=== PATIENT | female | born 1960 | race Caucasian/White ===

== ENCOUNTER 2017-04-20 09:02 | Inpatient (IN) ==
--- OUTSIDE RECORDS SUMMARY | 2017-04-20 09:12 | External Medical Summary ---
:1960 Author Organization [employer] Care Team Providers Name Role Phone MayTameka Provider Role Unavailable Allergies No Known Allergies Problems Problem Type Condition Code Onset Dates Condition Status Problem Spotted fevers 082.0 Active Problem Heart valve replaced by transplant V42.2 Active Problem Encounter for long-term (current) V58.61 Active use of anticoagulants Problem Nondependent alcohol abuse, 305.00 Active unspecified drunkenness Problem Other chronic pain 338.29 Active Problem Tobacco use disorder 305.1 Active Problem OA knee 715.96 Active Problem Asthma, unspecified, unspecified 493.90 Active status Problem Major depressive disorder, recurrent 296.32 Active episode, moderate Problem Generalized anxiety disorder 300.02 Active Problem Other diseases of lung, not 518.89 Active elsewhere classified Problem Encounter for long-term (current) V58.69 Active use of other medications Assessment Anxiety disorder, unspecified F41.9 Active Problem Peptic ulcer, unspecified site, 533.90 Active unspecified as acute or chronic, without mention of hemorrhage, perforation, or obstruction Problem Sialoadenitis 527.2 Active Problem Hepatitis C carrier V02.62 Active Medications Medication Code Code Instructions Start End Date Status Dosage System Date ibuprofen NDC 0 Oral 1 [place] [address]-77 108 (90 Base) 2 puffs as 51-85 MCG/ACT needed Inhalation every 4 hrs Albuterol Sulfate NDC 02701-95 (2.5 MG/3ML) 3 ml 90-52 0.083% Inhalation Three times a day Morphine Sulfate NDC 20367-95 30 MG Orally Feb 08, Apr 08, 1 tablet ER 58-01 every 12 hrs 2014 2015 Acetaminophen NDC 49571-87 500 MG Orally 2 capsule 25-08 every 4 hrs as needed Results No Known Results Summary Purpose [employer] Submission
--- OUTSIDE RECORDS SUMMARY | 2017-04-20 09:12 | External Medical Summary ---
:1960 Author Organization [employer] Care Team Providers Name Role Phone Yair Galvez Provider Role Unavailable Allergies No Known Allergies Problems Problem Type Condition Code Onset Dates Condition Status Problem Hepatitis C carrier V02.62 Active Problem Heart valve replaced by transplant V42.2 Active Problem Spotted fevers 082.0 Active Problem Nondependent alcohol abuse, 305.00 Active unspecified drunkenness Problem Other chronic pain 338.29 Active Problem Tobacco use disorder 305.1 Active Problem OA knee 715.96 Active Problem Asthma, unspecified, unspecified 493.90 Active status Problem Major depressive disorder, recurrent 296.32 Active episode, moderate Problem Generalized anxiety disorder 300.02 Active Problem Sialoadenitis 527.2 Active Problem Other diseases of lung, not 518.89 Active elsewhere classified Problem Encounter for long-term (current) V58.69 Active use of other medications Problem Peptic ulcer, unspecified site, 533.90 Active unspecified as acute or chronic, without mention of hemorrhage, perforation, or obstruction Medications No Known Medications Results No Known Results Summary Purpose [employer] Submission
--- NOTE | 2017-04-20 09:14 | Emergency Department Report ---
General Adult HPI - General Stated complaint: coa Time Seen by Provider: 04/20/17 09:05 Source: patient Mode of arrival: wheelchair Limitations: no limitations - History of Present Illness HPI narrative: 56-year-old female presents to the emergency department with a chief complaint of dyspnea and palpitations. She has been out of her rate control Cardizem for the past several days and has not bothered to refill her prescription. She notified her primary care physician and was advised to come to the emergency department 3 days ago for evaluation of her symptoms and declined. She was at home when her symptoms began over one week ago. Symptoms have been persistent in nature since onset. She notes feeling like she is bloated and retaining fluid but denies true pain or discomfort. She has a known history of atrial fibrillation/flutter. She has been compliant with her Xarelto. She has no other complaints or associated symptoms currently. She has known congestive heart failure and feels like this is a typical exacerbation of this for her. - Related Data Home Medications Medication Instructions Recorded Confirmed Acetaminophen [Acetaminophen Extra 1,000 mg PO Q6H PRN 03/09/17 04/20/17 Strength] Albuterol Sulfate 2.5 mg AEROSOL Q4H PRN 03/09/17 04/20/17 Rivaroxaban [Xarelto] 20 mg PO 1700 03/09/17 04/20/17 Trazodone [Desyrel] 100 mg PO HS PRN 03/09/17 04/20/17 dilTIAZem HCl [Cartia Xt] 120 mg PO DAILY 04/20/17 04/20/17 Allergies Allergy/AdvReac Type Severity Reaction Status Date / Time meloxicam Allergy Severe THROAT Verified 04/20/17 09:43 SWELLING meperidine Allergy Severe Anaphylactic Verified 04/20/17 09:43 Shock bee venom protein (honey bee) Allergy Intermediate Vomiting Verified 04/20/17 09 :45 codeine Allergy Intermediate Hives Verified 04/20/17 09:43 methadone Allergy Intermediate WELTS Verified 04/20/17 09:43 adhesive AdvReac Mild Verified 04/20/17 09:45 Review of Systems Constitutional: Denies: fever, chills Eyes: Denies: eye pain, vision change ENT: Denies: ear pain, throat pain Cardiovascular: Reports: palpitations. Denies: chest pain Respiratory: Reports: dyspnea. Denies: cough, wheezes, hemoptysis Gastrointestinal: Denies: abdominal pain, nausea, vomiting, diarrhea Genitourinary: Denies: urgency, dysuria Musculoskeletal: Denies: back pain, arthralgia Integumentary: Denies: erythema, rash Neurological: Denies: headache, numbness Psychiatric: Denies: anxiety, depression Endocrine: Denies: fatigue, polydipsia Hematological/Lymphatic: Denies: easy bruising, lymphadenopathy Allergic/Immunologic: Denies: facial swelling, urticaria PFSH Patient Stated Medical History Cataracts Yes Cardiac Arrhythmia Yes: atrial flutter Bronchitis Yes: chronic Chronic Obstructive Pulmonary Yes Disease (COPD) Other Respiratory Yes: emphysema Gastroesophageal Reflux Yes Disease Other Hematologic Yes: hep c Other Infectious Yes: [place] SPOTTED FEVER Blood Transfusions Yes Depression Yes Substance Use Disorder Yes: MARIJUANA Surgical History: Heart valve replacement Family History: Reviewed and Noncontributory. - Social History Smoking status: Current every day smoker Substance use type: marijuana Alcohol intake frequency: does not drink Physical Exam - Limitations Limitations: no limitations - General General appearance: alert, in no apparent distress - Normal Exams: Head:: Normocephalic without trauma Eyes:: Pupils are PERRLA w/ EOMI, No scleral icterus, irritation, or foreign bodies noted ENMT:: No facial trauma, nasal exudates, pharyngeal erythema, or exudates are noted Dental: No fractured, loose, or missing teeth noted Neck:: Full range of motion, without adenopathy, JVD, bruits or thyromegaly Chest/Respirations:: Clear all robins, with good airflow, and symmetry bilaterally Cardiovascular:: Regular rate and rhythm (Rate-145 bpm. Aflutter on monitor. ), without murmur or gallop, Pulses 2+ all extremities, capillary refill, <2 seconds all extremities (1+ BLE Extremity Edema. ) Abdomen:: Bowel sounds positive, soft, non-tender, non-distended, no hepatosplenomegaly, masses or bruits noted Lymphatic:: No lymphadenopathy, or lymphedema noted Musculoskeletal:: No tenderness, or deformity noted, good range of motion, all extremities Integumentary:: No rashes, hives, or bruising noted, hair and nails, without abnormality Neurological:: Patient is alert, and oriented, cranial nerves, motor/sensory/ cerebellar, exams w/o gross deficits, to observation Psychiatric:: Patient exhibits, appropriate attention, emotion and affect Course Vital Signs Temperature 97.5 F 04/20/17 09:05 Pulse Rate 125 H 04/20/17 09:05 Respiratory Rate 28 H 04/20/17 09:05 Blood Pressure 180/107 H 04/20/17 09:05 Pulse Oximetry 97 04/20/17 09:05 Temperature 97.7 F 04/21/17 04:30 Pulse Rate 58 L 04/21/17 10:15 Respiratory Rate 32 H 04/21/17 10:45 Blood Pressure 96/66 04/21/17 10:01 Pulse Oximetry 93 04/21/17 10:45 Medical Decision Making - MDM Narrative Medical decision making narrative: Labs / imaging were discussed in detail with the patient and questions are answered. Patient was given a bolus of 5 mg of Cardizem intravenously times one and drip initiated at 5 and titrated to effect. She was given Lasix 40 mg IV times one. Patient has been compliant with her Xarelto. Patient is discussed with her senior integration architect Dr. Gordon Fernandez who recommends admission to the CCU on Cardizem drip. Dr. Fernandez will handle diuresis and antiplatelet therapy as indicated. She was discussed with Dr. [place]enfield is in agreement with the current plan of management. Patient is admitted to the service of the hospitalist in improved condition. Patient was unable to give urinalysis in the emergency department and declined catheterization. She has no urinary symptoms at this time. UA is pending at the time of admission and will be followed by the hospitalist appropriately. At the time of admission it seems the patient's atrial fibrillation and potential CHF exacerbation is caused by medical noncompliance as I have no source of infection to initiate antibiotic therapy at this time. She is admitted to the CCU in improved condition. No further orders from accepting or consulting physicians were in agreement with the current plan of management. - Differential Diagnosis afib, medical noncompliance, dehydration, chf - Lab Data Result diagrams: 04/21/17 04:43 04/21/17 04:43 Lab Results 04/20/17 04/20/17 Range/Units 09:59 09:59 WBC 7.8 (4.5-11.0) T/MM3 RBC 3.84 L (4.00-5.20) M/MM3 Hgb 11.2 L (12-16) GM/DL Hct 36.0 (36-46) % MCV 93.8 (80-100) UM3 MCH 29.2 (26-34) UUG MCHC 31.1 (31-37) GM/DL RDW Std Deviation 51.3 H (36.9-50.2) FL Plt Count 249 (130-400) T/MM3 MPV 10.4 (9.4-12.4) UM3 Immature Gran % (Auto) 0.1 (0.0-0.5) % Neut % (Auto) 71.8 H (33-66) % Lymph % (Auto) 17.8 L (23-45) % [place] % (Auto) 8.7 (0-9.0) % Eos % (Auto) 1.0 (0-4) % Baso % (Auto) 0.6 (0-2) % Neut # (Auto) 5.6 (1.8-7.7) T/MM3 Lymph # (Auto) 1.4 (1-4.8) T/MM3 [place] # (Auto) 0.7 (0-0.8) T/MM3 Eos # (Auto) 0.1 (0-0.5) T/MM3 Baso # (Auto) 0.1 (0-0.2) T/MM3 Abs Immat Gran (auto) 0.01 (0.00-0.03) T/MM3 Turbidity < 20 (0-20) Sodium 140 (134-144) MEQ/L Potassium 3.9 (3.6-5) MEQ/L Chloride 107 (98-107) MEQ/L Carbon Dioxide 22 (22-30) MEQ/L Anion Gap 11 (5-15) MEQ/L BUN 17.0 (7-17) MG/DL Creatinine 0.6 L (0.7-1.2) MG/DL GFR Calculation 104 BUN/Creatinine Ratio 28 H (6-26) RATIO Glucose 100 (65-110) MG/DL Calculated Osmolality 271 (261-280) MOSM/KG Calcium 8.4 (8.4-10.2) MG/DL Total Bilirubin 0.60 (0.20-1.30) MG/DL Icterus Index < 2 (0-7) AST 34 (14-36) U/L ALT 69 H (9-52) U/L Alkaline Phosphatase 125 (38-126) U/L Troponin I 0.018 (0-0.12) ng/ml B-Natriuretic Peptide 5770 H (0-175) pg/mL Total Protein 7.0 (6.3-8.2) G/DL Albumin 3.7 (3.5-5.0) G/DL Globulin 3.3 (2.4-3.6) G/DL Albumin/Globulin Ratio 1.1 (1.1-2.2) RATIO Lipase 59 (23-300) U/L Plasma Lactate 1.5 (0.6-2.2) MMOL/L Specimen Hemolysis < 15 (0-25) - Radiology Data CXR: Impression: No focal pneumonia. Persistent opacities in the right lung base which were nodular on prior CT and were concerning for possible metastatic disease. - EKG Data EKG #1 EKG results narrative: Atrial flutter. 125 bpm. No STEMI. Disposition Clinical Impression: Afib Congestive heart failure Qualifiers: Congestive heart failure type: unspecified Congestive heart failure chronicity : unspecified Qualified Code(s): I50.9 - Heart failure, unspecified Disposition: 02 To [facility] [place] Acute Care Condition: Improved Time of Disposition: 11:00 - Seen By: physician
[2017-04-20] MEDS: SALINE FLUSH 10ml SYRINGE IVF PRN (09:36)
[2017-04-20] MEDS ORDERED: DiltiaZEM 25 MG/5 ML INJECTION IVP ONE (09:54)
--- NOTE | 2017-04-20 10:16 | XRay Report ---
Indication: sob PROCEDURE: XR chest 1V: Encounter: Initial Comparison: CT angiogram of the chest and chest x-ray dated March 09, 2017 Findings: Persistent opacities noted in the right lower lobe. Emphysema. No pneumothorax or effusion. Cardiac silhouette remains enlarged. The solid contours are stable. Pulmonary vascularity is normal. Impression: No focal pneumonia. Persistent opacities in the right lung base which were nodular on prior CT and were concerning for possible metastatic disease. .
[2017-04-20] MEDS: DiltiaZEM Drip 125 MG in NS 125 ML IV SCH ×2 (10:21→22:55)
[2017-04-20] MEDS ORDERED: HYDROCODONE/APAP 5mg/325mg TABLET PO ONE (10:57)
[2017-04-20] MEDS: FUROSEMIDE 40 MG/4 ML INJECTION IVP SCH (12:12)
--- NOTE | 2017-04-20 12:34 | History & Physical Report ---
History of Present Illness Date: 04/20/17 Chief complaint: SOA, acute back/abdominal pain HPI: Patient is a 56-year-old female who presents to the ED with complaints of severe pain that woke her up this morning at 5 AM and a 2 day history of worsening cough and shortness of breath. She also reports she was "swelled up all over" when she woke up this morning. States she had no swelling yesterday. She states she feels like she was "kicked in the kidneys," and the pain radiates around the abdomen on both sides. Upon arrival, she was found to be in atrial fibrillation with RVR, rate of 125. She was given 5 mg diltiazem followed by a diltiazem drip at 5 mg per hour. She was also given 40 mg of IV furosemide. Dr. Dhillon consulted Dr. Fernandez from the ER. Her chest x-ray shows no pneumonia. She does have persistent opacities in the right lung base which were nodular on prior CT and were concerning for possible metastatic disease. Patient has a history of uterine cancer. Respiratory panel was negative. 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 Initially had mechanical valve, replaced with pig valve. Hysterectomy secondary to uterine cancer-age 38, toe amputation 5 secondary to complications from [place] spotted fever 1997 Family History: F - . Lung CA. M - . Lung CA, CAD (stents), DM Sister-uterine cancer Family History Updates: updated - Social History Smoking status: Current every day smoker (5 cigs/day) Substance use type: marijuana (typically uses daily) Substance last used: days (ago) (7) Alcohol intake frequency: a few times a month (1-2 beers) Household members: none (lives alone. . 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 Medications Home Medications Medication Instructions Recorded Confirmed Type Acetaminophen [Acetaminophen Extra 1,000 mg PO Q6H PRN 12/22/17 02/02/18 History Strength] Albuterol Sulfate 2.5 mg AEROSOL Q4H PRN 03/09/17 04/20/17 History Rivaroxaban [Xarelto] 20 mg PO 1700 03/09/17 04/20/17 History Trazodone [Desyrel] 100 mg PO HS PRN 03/09/17 04/20/17 History dilTIAZem HCl [Cartia Xt] 120 mg PO DAILY 04/20/17 04/20/17 History Allergies Allergy/AdvReac Type Severity Reaction Status Date / Time meloxicam Allergy Severe THROAT Verified 04/20/17 09:43 SWELLING meperidine Allergy Severe Anaphylactic Verified 04/20/17 09:43 Shock bee venom protein (honey bee) Allergy Intermediate Vomiting Verified 04/20/17 09 :45 codeine Allergy Intermediate Hives Verified 04/20/17 09:43 methadone Allergy Intermediate WELTS Verified 04/20/17 09:43 adhesive AdvReac Mild Verified 04/20/17 09:45 Exam Vital Signs: Temperature 97.5 F 04/20/17 09:05 Pulse Rate 124 H 04/20/17 11:38 Respiratory Rate 26 H 04/20/17 11:38 Blood Pressure 136/96 H 04/20/17 11:38 Pulse Oximetry 95 04/20/17 11:38 - Constitutional Present: mild distress, well nourished, well developed - Routine HEENT Exam Head: Present: normocephalic, atraumatic Eye: Present: EOMI, PERRL ENT: Present: mucous membranes dry, oropharynx clear. Absent: dentition normal (teeth in poor repair) - Routine Neck Exam Present: supple. Absent: lymphadenopathy, thyromegaly - Routine Respiratory Exam Present: dyspnea, decreased breath sounds, CTA bilaterally, distant breath sounds, diminished air movement. Absent: wheezes - Routine Cardiovascular Exam Present: no murmur, tachycardia, irregularly irregular - Routine Abdominal Exam Present: normoactive bowel sounds, tenderness (mildly diffuse, moderate tenderness in the epigastric region, positive flank pain bilateral), distended, firm - Routine Extremities Exam Present: no edema (exam was performed after patient had diuresis from Lasix given in ER.), normal capillary refill Comments: Amputation of left fourth and fifth and right third, fourth and fifth toes - Routine Skin Exam Present: dry, warm - Routine Neurological Exam Present: alert, oriented X3, CN II-XII intact - Routine Psychiatric Exam Present: normal affect, cooperative Results - Labs CBC & Chem 7: 04/20/17 09:59 04/20/17 09:59 Labs: Laboratory Tests 04/20/17 09:59 Troponin I 0.018 B-Natriuretic Peptide 5770 H - Imaging and Cardiology CT scan - chest Additional comments: CTA from previous visit Date of Exam: 03/09/17 Indication: chest pain and elevated d-dimer PROCEDURE: CT angio pulm emboli: Findings: Pulmonary arteries: Exam is diagnostic to the subsegmental pulmonary arterial level. There are no filling defects identified to suggest a pulmonary embolus. Other findings: Emphysema is again noted. Stable irregular 6 to 7 mm right upper lobe nodule on image #7. New groundglass type nodular opacities seen in the subpleural right lower lobe ranging from 3 to 5 mm in size without true consolidation. Stable area of scarring in the right upper lobe. New right upper lobe nodule on coronal image #65 measuring 5 mm in size. New right lower lobe nodule on coronal image #64 measuring 6 mm. Small subpleural groundglass opacities in the medial posterior left lower lobe ranging from 2 to 4 mm in size with areas of atelectasis and scarring. No pneumothorax or pleural effusion. The central airways are patent. No axillary or mediastinal adenopathy. Heart size is stable. No pericardial effusion. Reflux of contrast into the hepatic veins suggesting right heart insufficiency. Bone windows show no acute findings. Impression: 1. No pulmonary embolus 2. New randomly distributed pulmonary nodules raising concern for metastatic disease, particularly given the history of uterine cancer. Atypical or fungal pneumonia is also within the differential. Short-term follow-up CT in one to two months is recommended to evaluate for interval change. 3. Right heart insufficiency. 4. Emphysema Chest x-ray Additional comments: Date of Exam: 04/20/17 Indication: sob PROCEDURE: XR chest 1V: Comparison: CT angiogram of the chest and chest x-ray dated March 09, 2017 Findings: Persistent opacities noted in the right lower lobe. Emphysema. No pneumothorax or effusion. Cardiac silhouette remains enlarged. The solid contours are stable. Pulmonary vascularity is normal. Impression: No focal pneumonia. Persistent opacities in the right lung base which were nodular on prior CT and were concerning for possible metastatic disease. Assessment and Plan (1) Acute respiratory failure Current visit: Yes Status: Acute Assessment and Plan: Assessment: Acute respiratory failure Atrial fib with RVR Acute abdominal and flank pain Pulmonary nodules - unspecified, but suspicious for metastatic disease versus atypical or fungal pneumonia COPD Artificial tricuspid valve-chronic anticoagulation with Xarelto History of uterine cancer Hypertension Tobacco dependence Plan: Admit to CCU under the hospitalist service, Dr. Curiel attending, with consult to Dr. Fernandez for management of a-fib with RVR. Continue diltiazem drip until Dr. Fernandez consults. Chest/Abdominal/Pelvic CT for abdominal/flank pain, pulmonary nodules and SOA. UA positive for bacteria and nitrates. Culture is pending. Will defer initiation of antibiotics until CT abd is completed. Currently afebrile with no urinary sxs. RT consult for tobacco cessation. Nicotine patch offered. Duo nebs initiated. Continue Xarelto for anticoagulation for artificial valve. Patient wishes to be a full code. Her DPOA-H is her son, Patrick Connell. Care to return to Dr. Ford on dismissal. Case discussed with Dr. Curiel. DVT Prophylaxis: SCD's Resuscitation Status: Full Code - Physician Narrative Physician: Yon Curiel MD Narrative: Date: 04/20/17 Time: 1639 I have independently evaluated and examined this patient. I reviewed the chart, the patient's history, and the VINYL INSTALLER/PA's documented findings as above. We discussed and formulated the assessment and plan as above with additions as below: Patient has had dyspnea for a couple of days. She says she was more swollen today. + orthopnea. She says she started to feel better after getting iv Lasix. She c/o bilateral flank pain and abdominal discomfort. She asks for pain medicine. Patient has h/o a fib and was found to be in a fib with RVR in ED. Cardizem drip was started. Patient denies dysuria and had not had frequency until the above Lasix dose. Mild distress. Decreased breath sounds. Irregularly, irregular at 108. Diffuse tenderness abd and flank, no guarding/rebound. Trace edema. Continue diltiazem. Dr. Fernandez consulted. NPO until decision on cardioversion. Check CT chest to f/u on nodules. Add CT abdomen d/t pain. With no dysuria, will hold off on abx. Winn available for pain. Nicoderm available. Patient understands she needs to quit smoking. She will continue on Xarelto. Hospital Course Summary Disclaimer: The visit summary below is not to be considered part of the above Progress Note. Hospital Course: 04/20/17 - hospital admission Admit to CCU under the hospitalist service, Dr. Curiel attending, with consult to Dr. Fernandez for management of a-fib with RVR. Continue diltiazem drip until Dr. Fernandez consults. Chest/Abdominal/Pelvic CT for abdominal/flank pain, pulmonary nodules and SOA. UA positive for bacteria and nitrates. Culture is pending. Will defer initiation of antibiotics until CT abd is completed. Currently afebrile with no urinary sxs. RT consult for tobacco cessation. Nicotine patch offered. Duo nebs initiated. Continue Xarelto for anticoagulation for artificial valve. Patient wishes to be a full code. Her DPOA-H is her son, Patrick Connell. Care to return to Dr. Ford on dismissal. Case discussed with Dr. Curiel.
[2017-04-20] MEDS: ALBUTEROL/IPRATROPIUM 2.5mg-0.5mg/3ml NEB AEROSOL SCH ×2 (14:35→20:56)
[2017-04-20 14:56] VITALS: BMI 24.5
[2017-04-20] MEDS: HYDROCODONE/APAP 7.5 MG/325 MG TABLET PO PRN ×3 (15:17→23:12)
[2017-04-20] MEDS ORDERED: ACETAMINOPHEN 500 MG TABLET PO PRN (15:24)
[2017-04-20] MEDS ORDERED: ALBUTEROL 2.5mg/3ml (0.083%) NEB AEROSOL PRN (15:24)
[2017-04-20] MEDS ORDERED: TRAZODONE 100 MG TABLET PO PRN (15:24)
[2017-04-20] MEDS ORDERED: IOHEXOL 300mg/ml 100ml INJECTION ONE (15:46)
[2017-04-20] MEDS ORDERED: SALINE FLUSH 10ml SYRINGE ONE (15:46)
[2017-04-20] MEDS ORDERED: RIVAROXABAN 20 MG TABLET PO SCH (17:00)
[2017-04-20] MEDS: NICOTINE 14 MG PATCH TD SCH (18:54)
--- NOTE | 2017-04-20 20:33 | Cardiology Consult Note ---
History of Present Illness Consult reason: known to you History of present illness: Mrs. Brown is a 56-year-old female well known to me with a complex past medical including a cardiac history as noted below and long-standing history of medical noncompliance, unfortunately. She was last seen in my office in June 2016 for follow-up after an emergency room visit atrial flutter with RVR, time of office evaluation she is recommended to undergo a SHARON cardioversion she hasn't come back since. Patient says that she's tried to dial office number but calls were just not go through. She's had several emergency department visits for tachycardia in the past year including a visit with pneumonia in February. Patient ran out of by mouth diltiazem 10 days ago. She hasn't followed in the office. Started having shortness breath about 3 days ago for back and upper abdominal pain in both flanks worsening cough and dyspnea she felt was swollen all over his denies angina denies palpitations. The emergency room and she was noted to be in atrial flutter with RVR 125 beats per minutes IV diltiazem bolus and drip started also given IV Lasix for lower extremity edema in ER. At the time of my evaluation she has no lower extremity edema . She has been short of breath just walking a few steps. No dizziness or syncope. Chest x-ray in ER possible metastatic disease. Admitted to hospitalist service for further management. She has a personal history of uterine cancer. She denies hematochezia melena TIA or strokelike symptoms. She appears to be compliant with her xarelto Review of Systems All systems PM: 10-point ROS was reviewed, no additional remarkable complaints except PFSH Patient Stated Medical History Cataracts Yes Cardiac Arrhythmia Yes: atrial flutter Bronchitis Yes: chronic Chronic Obstructive Pulmonary Yes Disease (COPD) Other Respiratory Yes: emphysema Gastroesophageal Reflux Yes Disease Other Hematologic Yes: hep c Other Infectious Yes: CARMELITA MOUNTAIN SPOTTED FEVER Blood Transfusions Yes: no reported reactions Depression Yes Substance Use Disorder Yes: MARIJUANA Surgical History: Heart valve replacement. Remotely mechanical valve in the tricuspid position and subsequently complicated by thrombosis due to noncompliance with Coumadin in 2014 and resulted in resection of the valve and replacement of a tissue by prosthesis by Dr. Rafa Villagomez December 2014 via [facility]. Heart catheterization at [facility] just proceeded that ,showed minor nonocclusive atherosclerotic plaque - Social History Smoking status: Current every day smoker Substance use type: marijuana Alcohol intake frequency: a few times a month Housing: apartment Current residence: Apartment/Private Home Medications Home Medications Medication Instructions Recorded Confirmed Type Acetaminophen [Acetaminophen Extra 1,000 mg PO Q6H PRN 03/09/17 04/20/17 History Strength] Albuterol Sulfate 2.5 mg AEROSOL Q4H PRN 03/09/17 04/20/17 History Rivaroxaban [Xarelto] 20 mg PO 1700 03/09/17 04/20/17 History Trazodone [Desyrel] 100 mg PO HS PRN 03/09/17 04/20/17 History dilTIAZem HCl [Cartia Xt] 120 mg PO DAILY 04/20/17 04/20/17 History Allergies Allergy/AdvReac Type Severity Reaction Status Date / Time meloxicam Allergy Severe THROAT Verified 04/20/17 09:43 SWELLING meperidine Allergy Severe Anaphylactic Verified 04/20/17 09:43 Shock bee venom protein (honey bee) Allergy Intermediate Vomiting Verified 04/20/17 09 :45 codeine Allergy Intermediate Hives Verified 04/20/17 09:43 methadone Allergy Intermediate WELTS Verified 04/20/17 09:43 adhesive AdvReac Mild Verified 04/20/17 09:45 Exam Vital signs: Temperature 97.5 F 04/20/17 20:00 Pulse Rate 110 H 04/20/17 20:00 Respiratory Rate 25 H 04/20/17 20:00 Blood Pressure 139/68 04/20/17 19:45 Pulse Oximetry 93 04/20/17 20:00 - Constitutional no acute distress, other (chronically ill) - Routine HEENT Exam Head: Present: normocephalic, atraumatic Eye: Present: EOMI, PERRL ENT: Present: mucous membranes moist Nose: moist mucous membranes - Routine Neck Exam Present: supple, JVD, normal carotid upstroke. Absent: carotid bruit, lymphadenopathy, thyromegaly - Routine Respiratory Exam Present: decreased breath sounds, CTA bilaterally, diminished air movement. Absent: wheezes - Routine Cardiovascular Exam Present: tachycardia, irregular rhythm - Routine Abdominal Exam Present: soft, normoactive bowel sounds, non distended, non tender. Absent: organomegaly, mass - Routine Extremities Exam Present: no edema, pulses intact, normal capillary refill. Absent: cyanosis, clubbing - Routine Skin Exam Present: intact, dry. Absent: cyanosis, erythema - Routine Psychiatric Exam Present: normal affect, normal thought process, cooperative, good insight, good judgment Results 04/20/17 09:59 04/20/17 09:59 Intake and Output 04/20/17 04/20/17 04/20/17 06:59 14:59 22:59 Intake Total 52.166 / 52.166 240 / 240 Output Total 200 / 200 Balance 52.166 / 52.166 40 / 40 Intake: IV 22.166 / 22.166 60 / 60 DiltiaZEM Drip 125 mg In Ns 125 22.166 / 22.166 60 / 60 ml @ 5 mls/hr IV .Q24H [facility] Rx# :[id number] Oral 30 / 30 180 / 180 Output: Urine 200 / 200 Other: Urine Appearance Clear Urine Color Pale Yellow Weight 59 kg Patient Weight 04/21/17 06:59 Weight 59 kg - Imaging and Cardiology Echo: report reviewed (December 2014 massively dilated right atrium with a thrombosed mechanical tricuspid valve mild for hypertension severe cardiomyopathy EF of 30%) Cardiac cath: report reviewed (December 2014 no occlusive coronary artery disease , cardiomyopathy) EKG results: report reviewed, image reviewed Imaging & Cardiology Narrative: 04/20/17 21:08 Chest x-ray in ER shows moderate cardiomegaly mild vascular redistribution and radiology reports persistent nodule in the lung base suggestive of metastases EKG interpretations - EKG EKG shows: tachycardia (atrial flutter) - Dysrhythmias Supraventricular dysrhythmia: atrial flutter Assessment and Plan - Assessment and Plan Chronic atrial flutter now with RVR due to noncompliance with diltiazem (ran out 10 days ago) Bioprosthesis and tricuspid valve position, status post thrombosed mechanical tricuspid valve removal Cardiomyopathy nonischemic /congestive heart failure Medical noncompliance Chronic anticoagulation COPD Hepatitis C Abnormal chest x-ray possible metastatic disease History of uterine cancer As discussed with emergency department physician Dr. Dhillon and hospitalist Dr. Marvin started diltiazem drip. By mouth Xarelto Gentle diuresis initiated in ER, expect to need to switch her to by mouth soon We'll plan to transition diltiazem to by mouth metoprolol due to CHF and depressed ejection fraction blood pressure may add low-dose lisinopril for the same reason Will obtain an echocardiogram for current assessment of LV EF and a tricuspid bioprosthesis function Compliance with med refills stressed to the patient Hospital Course Summary Disclaimer: The visit summary below is not to be considered part of the above Progress Note. Hospital Course: 04/20/17 - hospital admission Admit to CCU under the hospitalist service, Dr. Curiel attending, with consult to Dr. Fernandez for management of a-fib with RVR. Continue diltiazem drip until Dr. Fernandez consults. Chest/Abdominal/Pelvic CT for abdominal/flank pain, pulmonary nodules and SOA. UA positive for bacteria and nitrates. Culture is pending. Will defer initiation of antibiotics until CT abd is completed. Currently afebrile with no urinary sxs. RT consult for tobacco cessation. Nicotine patch offered. Duo nebs initiated. Continue Xarelto for anticoagulation for artificial valve. Patient wishes to be a full code. Her DPOA-H is her son, Patrick Connell. Care to return to Dr. Ford on dismissal. Case discussed with Dr. Curiel.
[2017-04-20] MEDS: ONDANSETRON 4 MG/2 ML INJECTION IVP PRN (21:12)
[2017-04-21] MEDS: HYDROCODONE/APAP 7.5 MG/325 MG TABLET PO PRN ×4 (04:48→23:06)
[2017-04-21] MEDS: ONDANSETRON 4 MG/2 ML INJECTION IVP PRN ×4 (05:23→23:06)
[2017-04-21] MEDS: ALBUTEROL/IPRATROPIUM 2.5mg-0.5mg/3ml NEB AEROSOL SCH ×4 (06:55→20:06)
[2017-04-21] MEDS: LISINOPRIL 2.5 MG TABLET PO SCH (08:29)
[2017-04-21] MEDS: NICOTINE PATCH REMOVAL TD SCH (08:39)
[2017-04-21] MEDS: NICOTINE 14 MG PATCH TD SCH (08:39)
--- NOTE | 2017-04-21 12:26 | Progress Note ---
- Date 04/21/17 Subjective: Has had cough, mostly nonproductive. Off diltiazem drip. c/o back pain. Says swelling around abdomen is better. Objective Vital signs: Temperature 97.7 F 04/21/17 04:30 Pulse Rate 58 L 04/21/17 10:15 Respiratory Rate 32 H 04/21/17 10:45 Blood Pressure 96/66 04/21/17 10:01 Pulse Oximetry 93 04/21/17 10:45 Rhythm: Atrial Fibrillation with Normal Ventricular Rate Height/Weight/BMI: Height 5 ft 1 in Weight 58.4 kg Body Mass Index 24.5 - Constitutional Present: mild distress - Routine HEENT Exam Head: Present: normocephalic, atraumatic Eye: Present: EOMI, PERRL - Routine Respiratory Exam Present: accessory muscle use, diminished air movement - Routine Cardiovascular Exam Present: irregularly irregular - Routine Abdominal Exam Present: soft, normoactive bowel sounds, non tender - Routine Extremities Exam Present: edema - Routine Neurological Exam Present: alert, moving all extremities - Routine Psychiatric Exam Present: normal affect Results - Labs CBC & Chem 7: 04/21/17 04:43 04/21/17 04:43 Microbiology Results: Microbiology 04/20/17 12:13 Urine, Voided (Cc/notcc) Urine Culture - Preliminary Culture Initiated - Results Pending Assessment and Plan (1) Acute respiratory failure Current visit: Yes Status: Acute Assessment and Plan: Assessment: Acute respiratory failure Atrial fib with RVR Acute abdominal and flank pain Pulmonary nodules - unspecified, but suspicious for metastatic disease versus atypical or fungal pneumonia COPD Artificial tricuspid valve-chronic anticoagulation with Xarelto History of uterine cancer Hypertension Tobacco dependence ascites Hep C Plan: Rate controlled on metoprolol and off diltiazem drip. Transfer to floor. Continue to diurese for ascites. Patient wants to f/u as outpatient on [facility]. New pulmonary nodule seen on CT. Consult Dr. Bui; patient known to him. Patient with no sx of UTI. Has asymptomatic bacteriuria. RT consult for tobacco cessation. Nicotine patch offered. Duo nebs initiated. Continue Xarelto for anticoagulation for artificial valve. - Physician Narrative Narrative: Date: 04/21/17 Time: 1223 Hospital Course Summary Disclaimer: The visit summary below is not to be considered part of the above Progress Note. Hospital Course: 04/20/17 - hospital admission Admit to CCU under the hospitalist service, Dr. Curiel attending, with consult to Dr. Fernandez for management of a-fib with RVR. Continue diltiazem drip until Dr. Fernandez consults. Chest/Abdominal/Pelvic CT for abdominal/flank pain, pulmonary nodules and SOA. UA positive for bacteria and nitrates. Culture is pending. Will defer initiation of antibiotics until CT abd is completed. Currently afebrile with no urinary sxs. RT consult for tobacco cessation. Nicotine patch offered. Duo nebs initiated. Continue Xarelto for anticoagulation for artificial valve. Patient wishes to be a full code. Her DPOA-H is her son, Patrick Connell. Care to return to Dr. Ford on dismissal. Case discussed with Dr. Curiel. 2/3 Rate controlled on metoprolol and off diltiazem drip. Transfer to floor. Continue to diurese for ascites. Patient wants to f/u as outpatient on [facility]. New pulmonary nodule seen on CT. Consult Dr. Bui; patient known to him. Patient with no sx of UTI. Has asymptomatic bacteriuria. RT consult for tobacco cessation. Nicotine patch offered. Duo nebs initiated. Continue Xarelto for anticoagulation for artificial valve.
[2017-04-21] MEDS: SALINE FLUSH 10ml SYRINGE IVF PRN (12:42)
[2017-04-21] MEDS: FUROSEMIDE 40 MG/4 ML INJECTION IVP SCH (12:42)
[2017-04-21] MEDS: DiltiaZEM Drip 125 MG in NS 125 ML IV SCH (14:31)
[2017-04-21] MEDS ORDERED: FALL RISK - PHARMACY CONSULT MC ONE (16:34)
[2017-04-21] MEDS ORDERED: METOPROLOL 5mg/5ml INJECTION IVP PRN (16:58)
--- NOTE | 2017-04-21 17:08 | Cardiology Progress Note ---
Subjective Interval history: She's feeling a lot better breathing easier she says. She complains of less pain in her flanks and she feels that has helped her nausea. She gets nauseated with pain. She is hungry. She is still coughing some. Denies palpitations or dizziness. Her nurse reported to me as frequent falls at home and patient endorsed that saying that she falls at least once a week due to her toe getting caught up and due to bad knees. She said 15 years ago she was told she needed a knee replacement. She tells me she hasn't broken her wrists multiple times as a file year and half ago per her PCP referred to orthopedist but she never followed through she was afraid of " been talked into knee surgery". She has hit head at least once. She still feels her thighs are swollen. She is walking in the room to and from the bathroom on oxygen 2 L nasal cannula all the time. O2 sats are stable. Telemetry shows atrial flutter rate in the upper 90s when I listen to her and she is mildly tachycardic, few minutes after returning from bathroom Abdomen the large urine output now is 1 time but she hasn't urinated all morning she has reached look at her urine has looked old dark to her Myoview a notice concentrated urine. She denies dysuria or hematuria. She had a Urinalysis and it is noted. Hospitalist is primary. All BLADE's weight labs telemetry EKG and available x-ray Reports detail Exam Vital signs: Temperature 96.2 F L 04/21/17 15:58 Pulse Rate 91 04/21/17 16:00 Respiratory Rate 22 04/21/17 16:00 Blood Pressure 113/77 04/21/17 15:58 Pulse Oximetry 93 04/21/17 16:00 - Constitutional no acute distress, thin, cooperative, other (chronic atrial) - Routine HEENT Exam Head: Present: normocephalic, atraumatic Eye: Present: EOMI, PERRL ENT: Present: mucous membranes moist - Routine Neck Exam Present: normal carotid upstroke. Absent: JVD (dilated external jugular veins) , carotid bruit, lymphadenopathy, thyromegaly - Routine Respiratory Exam Present: CTA bilaterally. Absent: prolonged expiratory phase, rales, respiratory distress, rhonchi, wheezes - Routine Cardiovascular Exam Present: no murmur, click, tachycardia (apical pulse 108) - Routine Abdominal Exam Present: soft, normoactive bowel sounds, non distended, non tender. Absent: organomegaly, mass - Routine Extremities Exam Present: no edema, pulses intact, normal capillary refill. Absent: cyanosis, clubbing - Routine Skin Exam Present: intact, rash (tenia versicolor and her trunk throughout and many small papular lesions chronic appearing) - Routine Neurological Exam Present: alert, oriented X3, CN II-XII intact, moving all extremities, vision grossly intact, hearing grossly intact, normal speech. Absent: motor deficit, altered mental status, abnormal gait, hemineglect, facial asymmetry - Routine Psychiatric Exam Present: normal affect, normal thought process, cooperative, good insight, good judgment Results 04/21/17 04:43 04/21/17 04:43 CBC 04/21/17 Range/Units 04:43 WBC 5.9 (4.5-11.0) T/MM3 RBC 3.64 L (4.00-5.20) M/MM3 Hgb 10.6 L (12-16) GM/DL Hct 33.4 L (36-46) % Plt Count 218 (130-400) T/MM3 Neut # (Auto) 4.0 (1.8-7.7) T/MM3 Lymph # (Auto) 1.2 (1-4.8) T/MM3 [facility] # (Auto) 0.5 (0-0.8) T/MM3 Eos # (Auto) 0.1 (0-0.5) T/MM3 Baso # (Auto) 0.1 (0-0.2) T/MM3 Comprehensive Metabolic Panel 04/21/17 Range/Units 04:43 Sodium 137 (134-144) MEQ/L Potassium 3.8 (3.6-5) MEQ/L Chloride 102 (98-107) MEQ/L Carbon Dioxide 27 (22-30) MEQ/L BUN 19.0 H (7-17) MG/DL Creatinine 0.7 (0.7-1.2) MG/DL Glucose 120 H (65-110) MG/DL Calcium 8.5 (8.4-10.2) MG/DL Intake and Output 04/21/17 04/21/17 04/21/17 06:59 14:59 22:59 Intake Total 86.25 / 86.25 598.75 / 598.75 Output Total 0 / 0 Balance 86.25 / 86.25 598.75 / 598.75 Intake: IV 86.25 / 86.25 38.75 / 38.75 DiltiaZEM Drip 125 mg In Ns 125 86.25 / 86.25 38.75 / 38.75 ml @ 5 mls/hr IV .Q24H [facility] Rx# :[id number] Oral 560 / 560 Output: Urine 0 / 0 Other: Weight 58.4 kg Patient Weight 04/22/17 06:59 Weight 58.4 kg - Imaging and Cardiology EKG results: image reviewed (telemetry) - EKG Interpretation EKG shows: tachycardia (atrial flutter) Assessment and Plan - Attestation Attestation Narrative: 04/21/17 17:03 Chronic atrial flutter now with RVR due to noncompliance with Rx(ran out 10 days ago) better controlled now on beta blockers and off DILTIAZEM drip Bioprosthesis and tricuspid valve position, status post thrombosed mechanical tricuspid valve removal Cardiomyopathy nonischemic /congestive heart failure beta blockers and SHANIKA inhibitor started, IV diuretics stopped today Medical noncompliance Chronic anticoagulation COPD Hepatitis C Abnormal chest x-ray questionable metastatic disease . Pulmonary Consultation is pending. With her medicare specialist Dr. Canas History of uterine cancer Frequent falls Lengthy discussion with the patient and hospitalist service regarding the risks and benefits of anti-coagulation this lady DC Xarelto due to frequent falls occurring weekly Patient reports history of anaphylactic reaction to meloxicam, avoid aspirin and place her on Plavix 75 mg daily due to atrial flutter and the tissue a tricuspid valve ceases adding Lovenox for DVT prophylaxis Watch volume status off diuretics, volume status appears appropriate at this time. Patient did not need a diuretic therapy as an outpatient and much of her current CHF is suspected to be related to uncontrolled tachycardia Just started by mouth metoprolol due to CHF and depressed ejection fraction and a flutter, mildly tachycardia after activity, I'm going to add IV metoprolol when necessary tachycardia Will obtain an echocardiogram for current assessment of LV EF and a tricuspid bioprosthesis function, pending Compliance with med refills stressed to the patient I'll see the patient again on Sunday ,then plan to see her in the office in 2-4 weeks Discussed with hospitalist service 04/21/17 17:16 04/21/17 17:52 Hospital Course Summary Disclaimer: The visit summary below is not to be considered part of the above Progress Note. Hospital Course: 04/20/17 - hospital admission Admit to CCU under the hospitalist service, Dr. Curiel attending, with consult to Dr. Fernandez for management of a-fib with RVR. Continue diltiazem drip until Dr. Fernandez consults. Chest/Abdominal/Pelvic CT for abdominal/flank pain, pulmonary nodules and SOA. UA positive for bacteria and nitrates. Culture is pending. Will defer initiation of antibiotics until CT abd is completed. Currently afebrile with no urinary sxs. RT consult for tobacco cessation. Nicotine patch offered. Duo nebs initiated. Continue Xarelto for anticoagulation for artificial valve. Patient wishes to be a full code. Her DPOA-H is her son, Patrick Connell. Care to return to Dr. Ford on dismissal. Case discussed with Dr. Curiel. 2/3 Rate controlled on metoprolol and off diltiazem drip. Transfer to floor. Continue to diurese for ascites. Patient wants to f/u as outpatient on [facility]. New pulmonary nodule seen on CT. Consult Dr. Bui; patient known to him. Patient with no sx of UTI. Has asymptomatic bacteriuria. RT consult for tobacco cessation. Nicotine patch offered. Duo nebs initiated. Continue Xarelto for anticoagulation for artificial valve.
[2017-04-22] MEDS ORDERED: ALBUTEROL/IPRATROPIUM 2.5mg-0.5mg/3ml NEB AEROSOL PRN (06:38)
[2017-04-22] MEDS: ALBUTEROL/IPRATROPIUM 2.5mg-0.5mg/3ml NEB AEROSOL SCH ×4 (07:20→22:55)
[2017-04-22] MEDS: ONDANSETRON 4 MG/2 ML INJECTION IVP PRN ×2 (07:37→13:22)
[2017-04-22] MEDS: HYDROCODONE/APAP 7.5 MG/325 MG TABLET PO PRN ×3 (07:40→17:59)
[2017-04-22] MEDS ORDERED: INFLUENZA VAC. INJ. ADMIN CHARGE INJ ONE (07:51)
[2017-04-22] MEDS ORDERED: INFLUENZA VAC QIV 2017-18 (Fluarix*)(>=3yo) 0.5ml IM ONE (08:00)
[2017-04-22] MEDS ORDERED: ASPIRIN 325 MG TABLET PO SCH (09:00)
--- NOTE | 2017-04-22 10:12 | CT Scan Report ---
Indication: abd pain, SOA, pulm nodules, h/o uterine cancer PROCEDURE: CT chest abd/pelvis w con: Encounter: Subsequent Comparison: CT angiogram of the chest dated March 09, 2017 Technique: Axial CT images were performed through the chest, abdomen and pelvis after the administration of intravenous contrast. Coronal and sagittal two-dimensional reformats. Automated Exposure Control and Iterative Reconstruction dose reducing techniques were utilized. Contrast: Omnipaque 300 89 mL Findings: Chest: Moderate to severe emphysema. Stable small pulmonary nodules. Small right pleural effusion is new. Trace left pleural effusion and left basilar atelectasis. No pneumothorax. The central airways are patent. No axillary or mediastinal lymphadenopathy. Heart is enlarged. No pericardial effusion. The great vessels are within normal limits. Prior pacer leads. Reflux of contrast into the hepatic veins. Abdomen/pelvis: The liver is normal in size without focal mass. There is reflux of contrast in the hepatic veins consistent with right heart insufficiency. There is also a posterior right lobe hyperenhancing region consistent with a transient perfusion phenomenon. Right atrium is dilated. Gallbladder is grossly normal. Diffuse anasarca. The spleen, pancreas and adrenal glands are grossly normal. The kidneys are normal. No abdominal lymphadenopathy. Mildly enlarged inguinal lymph nodes. Licensed Weigher node in the right side on image #72 measures 1.5 cm in short axis. Largest left-sided node on image #71 measures 1.5 cm in short axis. No bowel obstruction. Bladder is normal. Uterus is absent. Prior pelvic node dissection. Small amount of free pelvic fluid. Bone windows show no acute findings. Impression: 1. Evidence of right heart insufficiency and volume overload with small right effusion, small volume ascites and anasarca. 2. Emphysema with small stable pulmonary nodules. 3. Mildly enlarged inguinal lymph nodes could be reactive or metastatic. There is a preliminary report by [facility]. .
[2017-04-22] MEDS: LISINOPRIL 2.5 MG TABLET PO SCH (10:25)
[2017-04-22] MEDS: ENOXAPARIN 40 MG/0.4 ML INJECTION SQ SCH (10:26)
[2017-04-22] MEDS: CLOPIDOGREL 75 MG TABLET PO SCH (10:26)
[2017-04-22] MEDS: NICOTINE 14 MG PATCH TD SCH (10:40)
[2017-04-22] MEDS: NICOTINE PATCH REMOVAL TD SCH (10:42)
--- NOTE | 2017-04-22 14:31 | Progress Note ---
- Date 04/22/17 Subjective: Estela is seen today in follow up. She reports ongoing nausea- "I throw up when I am in pain." States that she has to take anti-nausea medication before she can eat. Continues to endorse RUQ, flank edema and discomfort. Some epigastric discomfort. Is not wearing O2- sats down to 82-83%. Assisted her with replacing O2. States she does not wear O2 at home, but her son has expressed to her that she likely needs it. She does have a tray and a bag of fast food at bedside. Does not appear in distress. Breath is ketotic. Chart is reviewed for collateral information. Objective Vital signs: Temperature 97.4 F 04/22/17 07:43 Pulse Rate 113 H 04/22/17 08:00 Respiratory Rate 24 04/22/17 11:20 Blood Pressure 112/73 04/22/17 07:43 Pulse Oximetry 94 04/22/17 11:31 Rhythm: Atrial Fibrillation with Normal Ventricular Rate (Atrial Flutter. ) Height/Weight/BMI: Height 1.55 m Weight 58.4 kg Body Mass Index 24.5 - Constitutional Present: no acute distress, thin, cooperative - Routine HEENT Exam Head: Present: normocephalic, atraumatic Eye: Present: EOMI, PERRL ENT: Present: mucous membranes dry - Routine Respiratory Exam Present: decreased breath sounds, distant breath sounds. Absent: rales, rhonchi , crackles - Routine Cardiovascular Exam Present: RRR, S1, S2, no murmur - Routine Abdominal Exam Present: soft, tenderness, distended. Absent: firm - Routine Extremities Exam Present: no edema, non tender - Routine Musculoskeletal Exam Musculoskeletal: Present: no clubbing or cyanosis, moving extremities well - Routine Skin Exam Present: intact (Skin is sallow. ), dry, warm - Routine Neurological Exam Present: alert, moving all extremities - Routine Psychiatric Exam Present: normal affect, cooperative Results - Labs CBC & Chem 7: 04/22/17 04:30 04/22/17 04:30 Microbiology Results: Microbiology 04/20/17 12:13 Urine, Voided (Cc/notcc) Urine Culture - Final Coag negative Staphylococcus - Impressions Imaging is reviewed. Assessment and Plan (1) Acute respiratory failure Current visit: Yes Status: Acute Assessment and Plan: Assessment: Acute respiratory failure Atrial flutter with RVR Acute abdominal and flank pain/Hepatic congestion Pulmonary nodules - unspecified, but suspicious for metastatic disease versus atypical or fungal pneumonia COPD Artificial tricuspid valve-chronic anticoagulation with Xarelto History of uterine cancer Hypertension Tobacco dependence ascites Hep C/chronic liver disease Plan: 04/22/17 HR is a bit variable- continue metoprolol. Cardizem stopped- may need to add some dig if HR elevates again as BP is borderline. Dr. Fernandez following. VS are fairly stable. Will add low dose Lasix IV to diurese. Add aldactone to assist diuresis and for HF/chronic liver disease. Consider adding PPI for GI protection given liver disease and need for anticoagulation. Hep C- Patient wants to f/u as outpatient on Harv[facility]. Assess Ammonia. New pulmonary nodule seen on CT. Consult Dr. Bui; patient known to him. Patient with no sx of UTI. Has asymptomatic bacteriuria. Monitor. RT consult for tobacco cessation. Nicotine patch offered. Duo nebs initiated. Continue Xarelto for anticoagulation for artificial valve. If GI upset continues, may need gastric emptying study or EGD in the future. Will need overnoc oximetry prior to return home. DVT Prophylaxis: SCD's, Lovenox Resuscitation Status: Full Code - Physician Narrative Physician: Yon Curiel MD Narrative: Date: 04/22/17 Time: 1550 I have independently evaluated and examined this patient. I reviewed the chart, the patient's history, and the ACTIVITY SPECIALIST/PA's documented findings as above. We discussed and formulated the assessment and plan as above with additions as below: Patient is in bed. Asks about going home. Allows as how she hasn't been able to walk much d/t soa. c/o swelling in her upper thighs. Does not c/o nausea. NAD. Diminished breath sounds, no wheezing. RRR. S/NT/ND +BS. Trace edema Continue to diurese. Given liver dysfuction/ascites, starting lasix and spironolactone. Monitor BP on diuretics. Likely needs O2 at home but needs to quit smoking. Continuing patch. If able to ambulate with therapy could go home soon. Hospital Course Summary Disclaimer: The visit summary below is not to be considered part of the above Progress Note. Hospital Course: 04/20/17 - hospital admission Admit to CCU under the hospitalist service, Dr. uCriel attending, with consult to Dr. Fernandez for management of a-fib with RVR. Continue diltiazem drip until Dr. Fernandez consults. Chest/Abdominal/Pelvic CT for abdominal/flank pain, pulmonary nodules and SOA. UA positive for bacteria and nitrates. Culture is pending. Will defer initiation of antibiotics until CT abd is completed. Currently afebrile with no urinary sxs. RT consult for tobacco cessation. Nicotine patch offered. Duo nebs initiated. Continue Xarelto for anticoagulation for artificial valve. Patient wishes to be a full code. Her DPOA-H is her son, Patrick Connell. Care to return to Dr. Ford on dismissal. Case discussed with Dr. Curiel. 2/3 Rate controlled on metoprolol and off diltiazem drip. Transfer to floor. Continue to diurese for ascites. Patient wants to f/u as outpatient on Harvoni. New pulmonary nodule seen on CT. Consult Dr. Bui; patient known to him. Patient with no sx of UTI. Has asymptomatic bacteriuria. RT consult for tobacco cessation. Nicotine patch offered. Duo nebs initiated. Continue Xarelto for anticoagulation for artificial valve. 04/22/17 HR is a bit variable- continue metoprolol. Cardizem stopped- may need to add some dig if HR elevates again as BP is borderline. Dr. Fernandez following. VS are fairly stable. Will add low dose Lasix IV to diurese. Add aldactone to assist diuresis and for HF/chronic liver disease. Consider adding PPI for GI protection given liver disease and need for anticoagulation. Hep C- Patient wants to f/u as outpatient on Harvoni. Assess Ammonia. New pulmonary nodule seen on CT. Consult Dr. Bui; patient known to him. Patient with no sx of UTI. Has asymptomatic bacteriuria. Monitor. RT consult for tobacco cessation. Nicotine patch offered. Duo nebs initiated. Continue Xarelto for anticoagulation for artificial valve. If GI upset continues, may need gastric emptying study or EGD in the future. Will need overnoc oximetry prior to return home.
--- NOTE | 2017-04-22 14:42 | Pulmonology Consult Note ---
History of Present Illness Consult date: 04/22/17 Reason for consult: abnormal CXR/CT Chief complaint: abd/back pain History of present illness: HPI: Patient is a 56-year-old female known to me from pulmonary clinic. She still smokes. She has known COPD. She was on Spiriva once daily and neb albuterol but she stopped the Spiriva for unknown reasons. She presents to the ED with complaints of severe pain that woke her up this morning at 5 AM and a 2 day history of worsening cough and shortness of breath. She also reports she was "swelled up all over" when she woke up this morning. States she had no swelling yesterday. She states she feels like she was "kicked in the kidneys," and the pain radiates around the abdomen on both sides. Upon arrival, she was found to be in atrial fibrillation with RVR, rate of 125. She was given 5 mg diltiazem followed by a diltiazem drip at 5 mg per hour. She was also given 40 mg of IV furosemide. Dr. Dhillon consulted Dr. Fernandez from the ER. Her chest x-ray shows no pneumonia. She does have persistent opacities in the right lung base which were nodular on prior CT and were concerning for possible metastatic disease. Patient has a history of uterine cancer. Respiratory panel was negative. 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 Initially had mechanical valve, replaced with pig valve. Hysterectomy secondary to uterine cancer-age 38, toe amputation 5 secondary to complications from [place] spotted fever 1997 Family History: F - . Lung CA. M - . Lung CA, CAD (stents), DM Sister-uterine cancer Family History Updates: updated - Social History Smoking status: Current every day smoker (5 cigs/day) Substance use type: marijuana (typically uses daily) Substance last used: days (ago) (7) Alcohol intake frequency: a few times a month (1-2 beers) Household members: none (lives alone. . 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 Ford Petrol Tanker Driver-Dr. Bui Philatelic Consultant-Dr. Fernandez Review of Systems All systems: reviewed and no additional remarkable complaints except as stated - Constitutional Constitutional: Present: as per HPI PFSH Patient Stated Medical History Cataracts Yes Cardiac Arrhythmia Yes: atrial flutter Bronchitis Yes: chronic Chronic Obstructive Pulmonary Yes Disease (COPD) Other Respiratory Yes: emphysema Gastroesophageal Reflux Yes Disease Other Hematologic Yes: hep c Other Infectious Yes: CARMELITA M[place] SPOTTED FEVER Blood Transfusions Yes: no reported reactions Depression Yes Substance Use Disorder Yes: MARIJUANA Surgical History: Heart valve replacement - Social History Smoking status: Current every day smoker Medications Home Medications Medication Instructions Recorded Confirmed Type Acetaminophen [Acetaminophen Extra 1,000 mg PO Q6H PRN 03/09/17 04/20/17 History Strength] Albuterol Sulfate 2.5 mg AEROSOL Q4H PRN 03/09/17 04/20/17 History Rivaroxaban [Xarelto] 20 mg PO 1700 03/09/17 04/20/17 History Trazodone [Desyrel] 100 mg PO HS PRN 03/09/17 04/20/17 History dilTIAZem HCl [Cartia Xt] 120 mg PO DAILY 04/20/17 04/20/17 History Allergies Allergy/AdvReac Type Severity Reaction Status Date / Time meloxicam Allergy Severe THROAT Verified 04/20/17 09:43 SWELLING meperidine Allergy Severe Anaphylactic Verified 04/20/17 09:43 Shock bee venom protein (honey bee) Allergy Intermediate Vomiting Verified 04/20/17 09 :45 codeine Allergy Intermediate Hives Verified 04/20/17 09:43 methadone Allergy Intermediate WELTS Verified 04/20/17 09:43 adhesive AdvReac Mild Verified 04/20/17 09:45 Exam Vital signs: Temperature 97.4 F 04/22/17 07:43 Pulse Rate 113 H 04/22/17 08:00 Respiratory Rate 24 04/22/17 11:20 Blood Pressure 112/73 04/22/17 07:43 Pulse Oximetry 94 04/22/17 11:31 - Constitutional no acute distress, thin - Routine HEENT Exam Head: Present: normocephalic, atraumatic Eye: Absent: conjunctival icterus ENT: Present: mucous membranes moist - Routine Neck Exam Present: supple - Routine Respiratory Exam Present: decreased breath sounds. Absent: accessory muscle use, wheezes - Routine Cardiovascular Exam Present: RRR - Routine Abdominal Exam Present: soft. Absent: guarding - Routine Extremities Exam Absent: cyanosis, clubbing - Routine Neurological Exam Present: alert, oriented X3 Results - Laboratory Findings CBC and BMP: 04/22/17 04:30 04/22/17 04:30 Abnormal lab findings: Abnormal Labs 04/20/17 04/21/17 04/21/17 12:13 04:43 04:43 RBC 3.64 L Hgb 10.6 L Hct 33.4 L Neut % (Auto) 67.9 H Lymph % (Auto) 20.9 L Lymph # (Auto) Chloride BUN 19.0 H BUN/Creatinine Ratio 27 H Glucose 120 H Ur Specific Christoval >=1.030 H Urine Protein 1+ A Urine Nitrate Positive A Ur Leukocyte Esterase Trace A Urine WBC 10-20 H Urine Bacteria 2+ H 04/22/17 04/22/17 04:30 04:30 RBC 3.96 L Hgb 11.3 L Hct Neut % (Auto) 78.0 H Lymph % (Auto) 12.1 L Lymph # (Auto) 0.9 L Chloride 97 L BUN 26.0 H BUN/Creatinine Ratio Glucose 111 H Ur Specific Christoval Urine Protein Urine Nitrate Ur Leukocyte Esterase Urine WBC Urine Bacteria - Diagnostic Findings CT scan - chest: report reviewed, image reviewed Assessment and Plan (1) Abnormal CT scan of lung Status: Acute Current Visit: Yes (2) Chronic obstructive pulmonary disease Status: Acute Current Visit: Yes - Assessment and Plan Abnormal CT lungs: severe emphysematous disease bilaterally, subcentimeter pulmonary nodules of unclear significance small right pleural effusion bibasilar atelectasis Severe COPD Severe emphysema on CT Was treated at home with Spiriva and albuterol neb check Ex Ox prior to dismissal and assess for supplemental O2 Atrial fibrillation with RVR rate controlled on carmen Fernandez to evaluate and treat - Time Spent With Patient Total time spent is greater than 50% in coordination of care (as documented) at patient's floor/unit and/or counseling patient: 25 - 35 minutes
[2017-04-22] MEDS: FUROSEMIDE 20 MG/2 ML INJECTION IVP SCH (17:56)
[2017-04-23] MEDS ORDERED: MAG-AL + SIM ORAL LIQUID 30ml PO PRN (00:08)
[2017-04-23] MEDS ORDERED: CALCIUM CARBONATE Chewable 750mg TABLET PO PRN (01:37)
[2017-04-23] MEDS ORDERED: PANTOPRAZOLE 20 MG TABLET PO SCH (06:30)
[2017-04-23] MEDS: ALBUTEROL/IPRATROPIUM 2.5mg-0.5mg/3ml NEB AEROSOL SCH ×2 (07:59→13:08)
[2017-04-23 08:11] VITALS: RESP 18
[2017-04-23] MEDS: LISINOPRIL 2.5 MG TABLET PO SCH (08:30)
[2017-04-23] MEDS ORDERED: SPIRONOLACTONE 25 MG TABLET PO SCH (09:00)
--- NOTE | 2017-04-23 09:40 | Progress Note ---
- Date 04/23/17 Subjective: Patient seen sitting in her bed before breakfast. She reports she continues to have pain in the flank and abdomen. She continues to have nausea, but reports that she has the "timing down" with her medications that now she is able to keep her food down. She states "could be better, could be worse." She continues to have swelling, but thinks that it has improved some since starting the Lasix. Objective Vital signs: Temperature 96.2 F L 04/23/17 07:29 Pulse Rate 109 H 04/23/17 07:29 Respiratory Rate 18 04/23/17 07:59 Blood Pressure 109/76 04/23/17 07:29 Pulse Oximetry 100 04/23/17 07:59 Rhythm: Atrial Fibrillation with Normal Ventricular Rate (Atrial Flutter. ) Height/Weight/BMI: Height 1.55 m Weight 61.2 kg Body Mass Index 24.5 - Constitutional Present: no acute distress, well nourished, well developed - Routine HEENT Exam Head: Present: normocephalic, atraumatic - Routine Respiratory Exam Present: decreased breath sounds, CTA bilaterally. Absent: wheezes - Routine Cardiovascular Exam Present: no murmur, irregular rhythm - Routine Abdominal Exam Present: soft, tenderness (epigastric and flank), non distended - Routine Extremities Exam Present: edema (legs and abdomen, nonpitting), normal capillary refill - Routine Skin Exam Present: dry, warm - Routine Neurological Exam Present: alert, oriented X3 - Routine Lymphatic Exam Lymphatic: Absent: adenopathy - Routine Psychiatric Exam Present: normal affect, cooperative Results - Labs CBC & Chem 7: 04/23/17 04:20 04/23/17 04:20 Microbiology Results: Microbiology 04/20/17 12:13 Urine, Voided (Cc/notcc) Urine Culture - Final Coag negative Staphylococcus Assessment and Plan (1) Acute respiratory failure Current visit: Yes Status: Acute Assessment and Plan: Assessment: Acute respiratory failure - improving Atrial flutter with RVR Acute abdominal and flank pain/Hepatic congestion Pulmonary nodules - unspecified, but suspicious for metastatic disease versus atypical or fungal pneumonia COPD Artificial tricuspid valve-chronic anticoagulation switched to Plavix this hospitalization due to fall risk History of uterine cancer Hypertension Tobacco dependence Ascites Hep C/chronic liver disease Plan: Continue IV Lasix for further diureses. Continue metoprolol and spironolactone. Echo pending. Dr. Fernandez will f-u with pt today. Pulmonary nodule seen on CT - per Dr. Bui Will need oximetry prior to return home. Patient with no sx of UTI. Has asymptomatic bacteriuria. Monitor. - Physician Narrative Physician: Yon Curiel MD Narrative: Date: 04/23/17 Time: 1620 I have independently evaluated and examined this patient. I reviewed the chart, the patient's history, and the STUDENT RECORDS SPECIALIST/PA's documented findings as above. We discussed and formulated the assessment and plan as above with additions as below: She says she is feeling better and apologizes for her behavior earlier. She is not wearing O2. On exercise oximetry the reading had a poor wave form with activity and could not pickling tank operator a reading, but when she stopped her sats went to mid-90s quickly. She c/o swelling. NAD. Decreased breath sounds. IR,IR. S/NT/ND +BS. No edema BLE. OK to dismiss with consultants. Not clearly qualifying for O2 and not likely to be compliant. Will continue spironolactone and stop Lasix per Dr. Fernandez's request. Will f/u with Dr. Ford about Harvoni, liver dysfunction. Hospital Course Summary Disclaimer: The visit summary below is not to be considered part of the above Progress Note. Hospital Course: 04/20/17 - hospital admission Admit to CCU under the hospitalist service, Dr. Curiel attending, with consult to Dr. Fernandez for management of a-fib with RVR. Continue diltiazem drip until Dr. Fernandez consults. Chest/Abdominal/Pelvic CT for abdominal/flank pain, pulmonary nodules and SOA. UA positive for bacteria and nitrates. Culture is pending. Will defer initiation of antibiotics until CT abd is completed. Currently afebrile with no urinary sxs. RT consult for tobacco cessation. Nicotine patch offered. Duo nebs initiated. Continue Xarelto for anticoagulation for artificial valve. Patient wishes to be a full code. Her DPOA-H is her son, Patrick Connell. Care to return to Dr. Ford on dismissal. Case discussed with Dr. Curiel. 2/3 Rate controlled on metoprolol and off diltiazem drip. Transfer to floor. Continue to diurese for ascites. Patient wants to f/u as outpatient on Harvoni. New pulmonary nodule seen on CT. Consult Dr. Bui; patient known to him. Patient with no sx of UTI. Has asymptomatic bacteriuria. RT consult for tobacco cessation. Nicotine patch offered. Duo nebs initiated. Continue Xarelto for anticoagulation for artificial valve. 04/22/17 HR is a bit variable- continue metoprolol. Cardizem stopped- may need to add some dig if HR elevates again as BP is borderline. Dr. Fernandez following. VS are fairly stable. Will add low dose Lasix IV to diurese. Add aldactone to assist diuresis and for HF/chronic liver disease. Add PPI for GI protection given liver disease and need for anticoagulation. Hep C- Patient wants to f/u as outpatient on Harvoni. Assess Ammonia. New pulmonary nodule seen on CT. Consult Dr. Bui; patient known to him. Patient with no sx of UTI. Has asymptomatic bacteriuria. Monitor. Pt switched from Xarelto to Plavix given her fall risk. Enoxaprin initiated If GI upset continues, may need gastric emptying study or EGD in the future. Will need overnoc oximetry prior to return home. 04/23/17 Continue IV Lasix for further diureses. Continue metoprolol and spironolactone. Echo pending. Dr. Fernandez will f-u with pt today. Pulmonary nodule seen on CT - per Dr. Bui Will need overnoc oximetry prior to return home. Patient with no sx of UTI. Has asymptomatic bacteriuria. Monitor.
[2017-04-23] MEDS: ONDANSETRON 4 MG/2 ML INJECTION IVP PRN (10:32)
[2017-04-23] MEDS: SALINE FLUSH 10ml SYRINGE IVF PRN (10:32)
[2017-04-23] MEDS: FUROSEMIDE 20 MG/2 ML INJECTION IVP SCH (10:32)
[2017-04-23] MEDS: NICOTINE PATCH REMOVAL TD SCH (10:33)
[2017-04-23] MEDS: CLOPIDOGREL 75 MG TABLET PO SCH (10:33)
[2017-04-23] MEDS: NICOTINE 14 MG PATCH TD SCH (10:33)
[2017-04-23] MEDS: ENOXAPARIN 40 MG/0.4 ML INJECTION SQ SCH (10:34)
[2017-04-23] MEDS: HYDROCODONE/APAP 7.5 MG/325 MG TABLET PO PRN (13:22)
[2017-04-23] MEDS ORDERED: ALBUTEROL/IPRATROPIUM 2.5mg-0.5mg/3ml NEB AEROSOL SCH (15:00)
--- NOTE | 2017-04-23 15:00 | Pulmonology Progress Note ---
Subjective Interval history: Pt sitting in bed. States her breathing is doing ok, no distress. Does have slight SOB noted and some cough and sputum. Exam Vital signs: Temperature 96.2 F L 04/23/17 07:29 Pulse Rate 112 H 04/23/17 08:00 Respiratory Rate 18 04/23/17 13:08 Blood Pressure 109/76 04/23/17 07:29 Pulse Oximetry 97 04/23/17 13:08 - Constitutional no acute distress, average body habitus, cooperative - Routine HEENT Exam Head: Present: normocephalic, atraumatic Eye: Present: EOMI, PERRL ENT: Present: mucous membranes moist - Routine Neck Exam Present: supple, full ROM, trachea midline - Routine Respiratory Exam Present: decreased breath sounds - Routine Cardiovascular Exam Present: irregular rhythm - Routine Abdominal Exam Present: soft, normoactive bowel sounds - Routine Extremities Exam Present: no edema, full ROM - Routine Back/Spine/Pelvis Exam Back/Spine: Present: full ROM - Routine Skin Exam Present: intact, dry - Routine Neurological Exam Present: alert, oriented X3, CN II-XII intact - Routine Psychiatric Exam Present: normal affect, normal thought process Assessment and Plan - Assessment and Plan Abnormal CT lungs Severe COPD Spiriva, alb Atrial fibrillation with RVR - cardizem Plan: Pt currently on RA, will get ExOx prior to dismissal. CT noted severe emphysematous disease bilaterally, subcentimeter pulmonary nodules of unclear significance, small right pleural effusion and bibasilar atelectasis. States she only has albuterol at home. Would benefit from Duo-neb QID till seen in clinic. Would recommend OP f/u in 3-4 weeks. Nodules stable per report, would need to see how long they have been followed, need to follow for 2 yrs. - Time Spent With Patient Total time spent is greater than 50% in coordination of care (as documented) at patient's floor/unit and/or counseling patient: less than 15 minutes
--- NOTE | 2017-04-23 15:36 | Cardiology Progress Note ---
Subjective Interval history: she tired and trying to catch up with naps. denies angina palpiations dizziness or dyspnea. hasn't been up much. lying down in bed with O2 NC not in place. tachycardic 110's on tele ,A flutter. 1ry servie contemplating discharge. also seen by pulmonology. CT scan results noted, anasarca small ascites, inguinal LAD but no masses. All BLADE's weight labs telemetry EKG and available x-ray Reports detail Exam Vital signs: Temperature 96.2 F L 04/23/17 07:29 Pulse Rate 112 H 04/23/17 08:00 Respiratory Rate 18 04/23/17 13:08 Blood Pressure 109/76 04/23/17 07:29 Pulse Oximetry 97 04/23/17 13:08 - Constitutional no acute distress, agitated, somnolent, other (chronically ill) - Routine HEENT Exam Head: Present: normocephalic, atraumatic Eye: Present: EOMI, PERRL ENT: Present: mucous membranes moist - Routine Neck Exam Present: normal carotid upstroke. Absent: JVD, carotid bruit, thyromegaly - Routine Respiratory Exam Present: CTA bilaterally, distant breath sounds. Absent: dyspnea, rales, respiratory distress, rhonchi, wheezes - Routine Cardiovascular Exam Present: no murmur, tachycardia (mild), irregular rhythm - Routine Abdominal Exam Present: soft, normoactive bowel sounds, non distended. Absent: rebound - Routine Extremities Exam Present: no edema, normal capillary refill. Absent: cyanosis, clubbing - Routine Skin Exam Present: intact. Absent: cyanosis, erythema - Routine Neurological Exam Present: oriented X3, CN II-XII intact, moving all extremities, vision grossly intact, hearing grossly intact, normal speech. Absent: motor deficit - Routine Psychiatric Exam Present: normal thought process, good insight Results 04/23/17 04:20 04/23/17 04:20 Cardiac Enzymes 04/23/17 Range/Units 04:20 AST 35 (14-36) U/L B-Natriuretic Peptide 4180 H (0-175) pg/mL Coagulation 04/23/17 Range/Units 04:20 B-Natriuretic Peptide 4180 H (0-175) pg/mL CBC 04/23/17 Range/Units 04:20 WBC 6.9 (4.5-11.0) T/MM3 RBC 4.04 (4.00-5.20) M/MM3 Hgb 11.4 L (12-16) GM/DL Hct 37.2 (36-46) % Plt Count 269 (130-400) T/MM3 Neut # (Auto) 4.8 (1.8-7.7) T/MM3 Lymph # (Auto) 1.3 (1-4.8) T/MM3 [place] # (Auto) 0.6 (0-0.8) T/MM3 Eos # (Auto) 0.1 (0-0.5) T/MM3 Baso # (Auto) 0.0 (0-0.2) T/MM3 Comprehensive Metabolic Panel 04/23/17 Range/Units 04:20 Sodium 135 (134-144) MEQ/L Potassium 4.0 (3.6-5) MEQ/L Chloride 94 L (98-107) MEQ/L Carbon Dioxide 29 (22-30) MEQ/L BUN 28.0 H (7-17) MG/DL Creatinine 0.9 (0.7-1.2) MG/DL Glucose 81 (65-110) MG/DL Calcium 9.0 (8.4-10.2) MG/DL AST 35 (14-36) U/L ALT 54 H (9-52) U/L Alkaline Phosphatase 113 (38-126) U/L Total Protein 7.1 (6.3-8.2) G/DL Albumin 3.8 (3.5-5.0) G/DL Intake and Output 04/23/17 04/23/17 04/23/17 06:59 14:59 22:59 Intake Total 700 / 700 200 / 200 Balance 700 / 700 200 / 200 Intake: Oral 700 / 700 200 / 200 Other: Urine Appearance Cloudy Urine Color Bright Yellow Urine Odor Normal # Voids 1 Weight 61.2 kg Patient Weight 04/24/17 06:59 Weight 61.2 kg - Imaging and Cardiology Echo: report reviewed (severly depressed LVEF ,good Fx of tissue TV. [email or web address]. 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 Hospital Course: 04/20/17 - hospital admission Admit to CCU under the hospitalist service, Dr. Curiel attending, with consult to Dr. Fernnadez for management of a-fib with RVR. Continue diltiazem drip until Dr. Fernandez consults. Chest/Abdominal/Pelvic CT for abdominal/flank pain, pulmonary nodules and SOA. UA positive for bacteria and nitrates. Culture is pending. Will defer initiation of antibiotics until CT abd is completed. Currently afebrile with no urinary sxs. RT consult for tobacco cessation. Nicotine patch offered. Duo nebs initiated. Continue Xarelto for anticoagulation for artificial valve. Patient wishes to be a full code. Her DPOA-H is her son, Patrick Connell. Care to return to Dr. Ford on dismissal. Case discussed with Dr. Curiel. 2/3 Rate controlled on metoprolol and off diltiazem drip. Transfer to floor. Continue to diurese for ascites. Patient wants to f/u as outpatient on [facility]. New pulmonary nodule seen on CT. Consult Dr. Bui; patient known to him. Patient with no sx of UTI. Has asymptomatic bacteriuria. RT consult for tobacco cessation. Nicotine patch offered. Duo nebs initiated. Continue Xarelto for anticoagulation for artificial valve. 04/22/17 HR is a bit variable- continue metoprolol. Cardizem stopped- may need to add some dig if HR elevates again as BP is borderline. Dr. Fernandez following. VS are fairly stable. Will add low dose Lasix IV to diurese. Add aldactone to assist diuresis and for HF/chronic liver disease. Add PPI for GI protection given liver disease and need for anticoagulation. Hep C- Patient wants to f/u as outpatient on [facility]. Assess Ammonia. New pulmonary nodule seen on CT. Consult Dr. Bui; patient known to him. Patient with no sx of UTI. Has asymptomatic bacteriuria. Monitor. Pt switched from Xarelto to Plavix given her fall risk. Enoxaprin initiated If GI upset continues, may need gastric emptying study or EGD in the future. Will need overnoc oximetry prior to return home. 04/23/17 Continue IV Lasix for further diureses. Continue metoprolol and spironolactone. Echo pending. Dr. Fernandez will f-u with pt today. Pulmonary nodule seen on CT - per Dr. Bui Will need overnoc oximetry prior to return home. Patient with no sx of UTI. Has asymptomatic bacteriuria. Monitor.
[2017-04-23 16:30] VITALS: BP 93/68; TEMP 95.8
--- NOTE | 2017-04-23 16:42 | Discharge Summary ---
Discharge Information Date of admission: 04/20/17 10:59 Attending Physician: Yon Curiel IV, MD Primary care physician: Hu Ford DO Consults: 04/21/17 12:31 Physician Consult [CONS] Routine Consulting Provider: Ernesto Bui Reason For Exam: COPD, lung nodule Ordering Provider has Notified Trim Carpenter: Yes - Discharge Diagnosis (1) Acute respiratory failure Status: Acute - Laboratory Labs: 04/23/17 04:20 04/23/17 04:20 - Microbiology Microbiology 04/20/17 12:13 Urine, Voided (Cc/notcc) Urine Culture - Final Coag negative Staphylococcus History of Present Illness HPI: Patient is a 56-year-old female who presents to the ED with complaints of severe pain that woke her up this morning at 5 AM and a 2 day history of worsening cough and shortness of breath. She also reports she was "swelled up all over" when she woke up this morning. States she had no swelling yesterday. She states she feels like she was "kicked in the kidneys," and the pain radiates around the abdomen on both sides. Upon arrival, she was found to be in atrial fibrillation with RVR, rate of 125. She was given 5 mg diltiazem followed by a diltiazem drip at 5 mg per hour. She was also given 40 mg of IV furosemide. Dr. Dhillon consulted Dr. Fernandez from the ER. Her chest x-ray shows no pneumonia. She does have persistent opacities in the right lung base which were nodular on prior CT and were concerning for possible metastatic disease. Patient has a history of uterine cancer. Respiratory panel was negative. Objective Vital signs: Temperature 95.8 F L 04/23/17 16:29 Pulse Rate 109 H 04/23/17 16:29 Respiratory Rate 18 04/23/17 16:29 Blood Pressure 93/68 04/23/17 16:29 Pulse Oximetry 92 04/23/17 16:29 Rhythm: Atrial Fibrillation with Normal Ventricular Rate (Atrial Flutter. ) Height/Weight/BMI: Height 5 ft 1 in Weight 61.2 kg Body Mass Index 24.5 Hospital Course This is a general summary of the patient's hospital course. For more details refer to the complete medical record. Hospital course: 56 yo who presented in atrial fibrillation with RVR after being w/o cardizem for 10 days. Rate was controlled on cardizem drip, and patient was transitioned to Toprolol XL by Dr. Fernandez d/t CHF. Patient had c/o of swelling, and a CT showed ascites. She did get Lasix along with spironolactone. Lasix was stopped by Dr. Fernandez because patient euvolemic. The patient has been having falls at home. Dr. Fernandez has stopped Pradaxa and started her on Plavix. Dr. Bui was consulted as she is known to him. She had a CT of the chest showing a nodule, which is stable per pulmonary. She will f/u with Dr. Bui in 3-4 weeks. Until then she will be on Duonebs. She did not qualify for O2 with exercise oximetry and was not keeping O2 on at rest - sats were 87-91%. Patient expressed interest in Harvoni for her Hepatits C and understands she will need to f/u as an outpatient. Patient is aware that she needs to stop smoking. She wants a nicotine patch when she goes home. Discharge Plan - Discharge Disposition Disposition: Discharged Home, Self-Care *Condition: Improved Reason For Visit (Visit label in EMR): a fib with rvr - Discharge Medications *Discharge Medications: New Acetaminophen [Tylenol] 1,000 mg PO Q6H PRN tab PRN Reason: Pain Albuterol/Ipratropium [Duoneb] 3 ml AEROSOL QID #120 each Clopidogrel [Plavix] 75 mg PO DAILY #30 tab Hydrocodone/APAP 7.5/325 [[place] 7.5/325] 1 tab PO Q6H PRN #20 tab PRN Reason: Pain Lisinopril [Prinivil] 2.5 mg PO DAILY #30 tab Metoprolol Succinate (XL) [Toprol Xl] 50 mg PO DAILY #30 tab Nicotine Patch [Nicoderm] 14 mg TD DAILY #30 patch Nicotine Patch Removal 1 removal TD DAILY patch Spironolactone [Aldactone] 12.5 mg PO DAILY #30 tab CALCIUM CARBONATE Chewable [Tums Extra Strength] 750 mg PO PRN PRN tab.chew PRN Reason: Dyspepsia Mag-Al + Sim Oral Liq [Maalox Plus] 30 ml PO Q3H PRN udc PRN Reason: Indigestion Continue Albuterol Sulfate 2.5 mg AEROSOL Q4H PRN #30 vial.neb PRN Reason: Shortness Of Air/Wheezing Discontinued Rivaroxaban [Xarelto] 20 mg PO 1700 Acetaminophen [Acetaminophen Extra Strength] 1,000 mg PO Q6H PRN PRN Reason: Pain Trazodone [Desyrel] 100 mg PO HS PRN PRN Reason: Prn Orders dilTIAZem HCl [Cartia Xt] 120 mg PO DAILY - Discharge Packet/Instructions *Pending Lab/Results: Follow up w/your PCP - Referrals/Follow Up *Referrals/Follow Up: Trent Fernandez MD [Physician] - Ernesto Bui MD [Physician] - - Patient Handouts - Dismissal Complete Discharge Instructions are:: Complete Physician Narrative - Narrative Attestation Narrative: Date: 04/23/17 Time: 5480
[2017-04-23 16:56] VITALS: O2SAT 100
[2017-04-23 16:58] VITALS: PULSE 106
--- NOTE | 2017-04-25 09:10 | Echocardiogram ---
COMPLETE ECHOCARDIOGRAM REPORT DATE OF SERVICE 04/23/2017 INDICATION Atrial flutter. Tricuspid valve replacement. Congestive heart failure. COPD. TECHNICAL QUALITY Technically good 2-D, M-mode, Doppler echocardiographic images were submitted for interpretation. FINDINGS 1. CARDIAC CHAMBERS. Biatrial enlargement is present. Left atrium measured 5 cm. Right atrium measured 5.4 cm. Aortic root diameter is normal. Left ventricle is dilated - 5.8 cm. RV size appears to be within normal range but hypokinetic. 2. LEFT VENTRICLE. Wall thickness is normal. Wall motion shows severe global hypokinesis. Ejection fraction of 20%. 3. VALVES. Aortic valve exhibits minimal sclerosis. Valve opening is normal. Mitral valve exhibits minimal sclerosis. Valve opening is normal. Tricuspid valve exhibits a bioprosthesis which appears to have a normal structure, stability and opening. I don't see any vegetations or clots. 4. DOPPLER. Shows moderate mitral regurgitation. Tricuspid valve study shows a peak inflow velocity of 1.63 m/sec with a mean pressure gradient of 4 mmHg. The prosthetic valve exhibits normal function. It appears moderate mitral regurgitation is present. Trace aortic regurgitation. Mild pulmonic insufficiency. Reduced flow velocities at the aortic valve and LVOT level, especially the latter at 0.7 m/sec indicates poor cardiac output. 5. IVC is dilated indicative of elevated central venous pressure. 6. No evidence of intracardiac masses, thrombi, vegetations are shunts. IMPRESSION 1. Biatrial enlargement, moderate to severe. 2. LV enlargement. 3. Severe global hypokinesis, LVEF of 20%. 4. RV hypokinesis. 5. Systolic PA pressure estimated at 29 mmHg which is normal. 6. Normal central venous pressure. 7. Moderate mitral regurgitation. 8. A tissue prosthetic valve in the tricuspid position with normal function. 9. Patient is in atrial flutter during the study. [facility]
== END 2017-04-23 18:15 | disposition home health service (06) | DRG 308 ==
LOC: ED 09:02 → CCU 10:59 → MED 04-21 14:33
PROVIDERS: ADMIT Hospitalist; ATTEND Hospitalist

== ENCOUNTER 2017-05-01 14:14 | Observation (INO) ==
--- OUTSIDE RECORDS SUMMARY | 2017-05-01 15:26 | External Medical Summary ---
[...] 0 Oral 1 [place] [address]-67 108 (90 Base) 2 puffs as 51-85 MCG/ACT needed Inhalation every 4 hrs Albuterol Sulfate NDC 75957-47 (2.5 MG/3ML) 3 ml 90-52 0.083% Inhalation Three times a day Morphine Sulfate NDC 88405-04 30 MG Orally Feb 08, Apr 08, 1 tablet ER 58-01 every 12 hrs 2014 2015 Acetaminophen NDC 32192-78 500 MG Orally 2 capsule 25-08 every 4 hrs as needed Results No Known Results Summary Purpose eClinicalWorks Submission
--- OUTSIDE RECORDS SUMMARY | 2017-05-01 15:26 | External Medical Summary ---
[...] Medications Results No Known Results Summary Purpose Audio Network[employer]RE2 Submission
--- NOTE | 2017-05-01 16:21 | Ultrasound Report ---
Indication: SOA 2/2 ascites PROCEDURE: US abdomen limited: Encounter: Initial Comparison: CT abdomen and pelvis dated April 20, 2017 Technique: Grayscale sonographic imaging of the four quadrants of the abdomen was performed. Findings: There is a small volume of ascites present in the the abdomen. This would likely be below the threshold for any benefit from a therapeutic paracentesis. .
--- NOTE | 2017-05-01 16:22 | XRay Report ---
Indication: SOA PROCEDURE: XR chest 1V: Encounter: Initial Comparison: April 20, 2017 Findings: Chest is stable in appearance. No new or worsening airspace disease. No pneumothorax. Emphysema. Small pleural effusions. Heart size and mediastinal contours are stable. Pulmonary vascularity is mildly prominent. Prior sternotomy changes. Impression: Stable chest with mild pulmonary edema. .
[2017-05-01] MEDS ORDERED: HYDROCODONE/APAP 7.5 MG/325 MG TABLET PO ONE (17:01)
[2017-05-01] MEDS ORDERED: ONDANSETRON 4 MG/2 ML INJECTION IVP ONE (17:01)
[2017-05-01] MEDS: SALINE FLUSH 10ml SYRINGE IVF PRN (17:07)
--- NOTE | 2017-05-01 18:06 | Emergency Department Report ---
SOB HPI - General Chief Complaint: Shortness of Breath/Dyspnea Stated Complaint: soa Time Seen by Provider: 05/01/17 15:18 Source: patient, family Mode of arrival: wheelchair Limitations: no limitations - History of Present Illness Pt presents with SOA that has progressed over the last couple of days. She was released from an inpatient admit 4 days ago for new onset A fib with RVR. Pt had been rate controlled on PO Cardizem. She has a history of Hep C and reports she feels like her abd has gotten so big she is unable to breath MD Complaint: shortness of breath Onset (ago): day(s) Context: other Severity: moderate Consistency/Duration: constant Relieving factors: nothing Exacerbating factors: lying flat Known history of: COPD, congestive heart failure, diabetes Associated symptoms: abdominal pain Treatment prior to arrival: none - Related Data Previous Rx's Medication Instructions Recorded Acetaminophen [Tylenol] 1,000 mg PO Q6H PRN tab 04/23/17 Albuterol Sulfate 2.5 mg AEROSOL Q4H PRN #30 vial.neb 04/23/17 Albuterol/Ipratropium [Duoneb] 3 ml AEROSOL QID #120 each 04/23/17 CALCIUM CARBONATE Chewable [Tums 750 mg PO PRN PRN tab.chew 04/23/17 Extra Strength] Clopidogrel [Plavix] 75 mg PO DAILY #30 tab 04/23/17 Lisinopril [Prinivil] 2.5 mg PO DAILY #30 tab 04/23/17 Mag-Al + Sim Oral Liq [Maalox Plus] 30 ml PO Q3H PRN udc 04/23/17 Metoprolol Succinate (XL) [Toprol 50 mg PO DAILY #30 tab 04/23/17 Xl] Spironolactone [Aldactone] 12.5 mg PO DAILY #30 tab 04/23/17 Allergies Allergy/AdvReac Type Severity Reaction Status Date / Time meloxicam Allergy Severe THROAT Verified 05/01/17 15:11 SWELLING meperidine Allergy Severe Anaphylactic Verified 05/01/17 15:11 Shock bee venom protein (honey bee) Allergy Intermediate Vomiting Verified 05/01/17 15 :11 codeine Allergy Intermediate Hives Verified 05/01/17 15:11 methadone Allergy Intermediate WELTS Verified 05/01/17 15:11 adhesive AdvReac Mild Verified 05/01/17 15:11 Review of Systems All systems: reviewed and negative except as stated Constitutional: Reports: as per HPI Cardiovascular: Reports: as per HPI Respiratory: Reports: as per HPI Gastrointestinal: Reports: as per HPI Genitourinary: Reports: as per HPI Musculoskeletal: Reports: as per HPI Psychiatric: Reports: anxiety [facility] Patient Stated Medical History Cataracts Yes Cardiac Arrhythmia Yes: atrial flutter Bronchitis Yes: chronic Chronic Obstructive Pulmonary Yes Disease (COPD) Other Respiratory Yes: emphysema Gastroesophageal Reflux Yes Disease Other Hematologic Yes: hep c Other Infectious Yes: CARMEL[place] SPOTTED FEVER Blood Transfusions Yes: no reported reactions Depression Yes Substance Use Disorder Yes: MARIJUANA Surgical History: Heart valve replacement - Social History Smoking status: Current every day smoker Physical Exam - Limitations Limitations: no limitations - General General appearance: alert, anxious, in distress - Normal Exams: Head:: Normocephalic without trauma Eyes:: Pupils are PERRLA w/ EOMI Neck:: Full range of motion, without adenopathy Musculoskeletal:: No tenderness, or deformity noted, good range of motion, all extremities Integumentary:: No rashes Neurological:: Patient is alert, and oriented, cranial nerves, motor/sensory/ cerebellar, exams w/o gross deficits, to observation Psychiatric:: Patient exhibits, appropriate attention, emotion and affect - Respiratory Respiratory exam: Present: respiratory distress - Expanded Respiratory Exam Location: Left: decreased breath sounds, Right: decreased breath sounds, Lower: decreased breath sounds - Cardiovascular Cardiovascular exam: Present: tachycardia, irregular rhythm - Abdominal Exam Abdominal exam: Present: distention, tenderness, diminished bowel sounds - Back Exam Back exam: Present: normal inspection, CVA tenderness (R), CVA tenderness (L) Course Vital Signs Temperature 97.6 F 05/01/17 14:23 Pulse Rate 108 H 05/01/17 14:23 Respiratory Rate 24 05/01/17 14:23 Blood Pressure 122/92 H 05/01/17 14:23 Pulse Oximetry 100 05/01/17 14:23 Temperature 97.6 F 05/01/17 14:23 Pulse Rate 113 H 05/01/17 17:49 Respiratory Rate 19 05/01/17 17:13 Blood Pressure 133/99 H 05/01/17 17:13 Pulse Oximetry 95 05/01/17 17:49 Shortness of Breath/Dyspnea - [facility] Narrative Medical decision making narrative: Labs, X ray, CT, and previous records reviewed. US reveals not enough abd fluid to warrant paracentesis at this time. CXR shows some pulmonary congestion. EKG reveals an AFIB with RVR at 115. Pt given medications for pain and nausea. She remains steadily tachy in the one teens however does not appear to be in as much distress. Dr Melo notified for need for admission.Pt and family informed of findings and plan and voice understanding. - Differential Diagnosis Likely: acute exacerbation of chronic obstructive airways disease, congestive heart failure ( end stage liver failure, arrhythmia) - Medical Records Attestation: I reviewed the patient's medical records. - Lab Data Attestation: I reviewed the patient's lab results. Result diagrams: 05/01/17 16:51 05/01/17 16:51 Lab Results 05/01/17 05/01/17 05/01/17 Range/Units 16:18 16:51 16:51 WBC 8.2 (4.5-11.0) T/MM3 RBC 4.21 (4.00-5.20) M/MM3 Hgb 11.6 L (12-16) GM/DL Hct 38.4 (36-46) % MCV 91.2 (80-100) UM3 MCH 27.6 (26-34) UUG MCHC 30.2 L (31-37) GM/DL RDW Std Deviation 52.9 H (36.9-50.2) FL Plt Count 201 (130-400) T/MM3 MPV 10.4 (9.4-12.4) UM3 Immature Gran % (Auto) 0.2 (0.0-0.5) % Neut % (Auto) 69.0 H (33-66) % Lymph % (Auto) 19.3 L (23-45) % [place] % (Auto) 9.6 H (0-9.0) % Eos % (Auto) 1.0 (0-4) % Baso % (Auto) 0.9 (0-2) % Neut # (Auto) 5.7 (1.8-7.7) T/MM3 Lymph # (Auto) 1.6 (1-4.8) T/MM3 [place] # (Auto) 0.8 (0-0.8) T/MM3 Eos # (Auto) 0.1 (0-0.5) T/MM3 Baso # (Auto) 0.1 (0-0.2) T/MM3 Abs Immat Gran (auto) 0.02 (0.00-0.03) T/MM3 Turbidity < 20 (0-20) Sodium 144 (134-144) MEQ/L Potassium 4.7 (3.6-5) MEQ/L Chloride 108 H (98-107) MEQ/L Carbon Dioxide 22 (22-30) MEQ/L Anion Gap 14 (5-15) MEQ/L BUN 14.0 (7-17) MG/DL Creatinine 0.7 (0.7-1.2) MG/DL GFR Calculation 87 BUN/Creatinine Ratio 20 (6-26) RATIO Glucose 103 (65-110) MG/DL Calculated Osmolality 278 (261-280) MOSM/KG Calcium 8.6 (8.4-10.2) MG/DL Total Bilirubin 1.20 (0.20-1.30) MG/DL Icterus Index < 2 (0-7) AST 24 (14-36) U/L ALT 45 (9-52) U/L Alkaline Phosphatase 121 (38-126) U/L Troponin I 0.017 (0-0.12) ng/ml B-Natriuretic Peptide 7760 H (0-175) pg/mL Total Protein 7.6 (6.3-8.2) G/DL Albumin 4.0 (3.5-5.0) G/DL Globulin 3.6 (2.4-3.6) G/DL Albumin/Globulin Ratio 1.1 (1.1-2.2) RATIO Specimen Hemolysis < 15 (0-25) Ur Collection Type Urine, void-cc/notcc Urine Color Yellow (YELLOW) Urine Clarity Clear Urine pH 6.0 (5.0-8.0) Ur Specific [place] 1.025 (1.015-1.025) Urine Protein 1+ A (NEGATIVE) Urine Glucose (UA) Negative (NEGATIVE) Urine Ketones Negative (NEGATIVE) Urine Occult Blood Negative (NEGATIVE) Urine Nitrate Negative (NEGATIVE) Urine Bilirubin 1+ A (NEGATIVE) Urine Urobilinogen 2.0 (NORMAL) EU/DL Ur Leukocyte Esterase Negative (NEGATIVE) Urine RBC None seen (0-3) /HPF Urine WBC None seen (0-5) /HPF Ur Squamous Epith Cells 0-5 Urine Bacteria 1+ H (NEGATIVE) Urine Mucus Present Ur Culture Indicated? Cult not indicated - Radiology Data Attestation: I reviewed the patient's radiology results. read per Dr Mayes. Disposition Clinical Impression: Congestive heart failure Qualifiers: Congestive heart failure chronicity: acute on chronic A-fib Qualifiers: Atrial fibrillation type: chronic Qualified Code(s): I48.2 - Chronic atrial fibrillation Liver failure Qualifiers: Liver failure chronicity: chronic Disposition: 02 To [facility] Acute Care Condition: Improved Prescriptions: No Action Acetaminophen [Tylenol] 1,000 mg PO Q6H PRN tab PRN Reason: Pain Albuterol Sulfate 2.5 mg AEROSOL Q4H PRN #30 vial.neb PRN Reason: Shortness Of Air/Wheezing Albuterol/Ipratropium [Duoneb] 3 ml AEROSOL QID #120 each Clopidogrel [Plavix] 75 mg PO DAILY #30 tab Lisinopril [Prinivil] 2.5 mg PO DAILY #30 tab Metoprolol Succinate (XL) [Toprol Xl] 50 mg PO DAILY #30 tab Spironolactone [Aldactone] 12.5 mg PO DAILY #30 tab CALCIUM CARBONATE Chewable [Tums Extra Strength] 750 mg PO PRN PRN tab.chew PRN Reason: Dyspepsia Mag-Al + Sim Oral Liq [Maalox Plus] 30 ml PO Q3H PRN udc PRN Reason: Indigestion Referrals: Hu Ford DO [Family Provider] - Time of Disposition: 18:45 - Seen By: midlevel
[2017-05-01 19:01] VITALS: BMI 27.6
[2017-05-01] MEDS ORDERED: CALCIUM CARBONATE Chewable 750mg TABLET PO PRN (19:57)
[2017-05-01] MEDS ORDERED: ALBUTEROL 2.5mg/3ml (0.083%) NEB AEROSOL PRN (19:57)
[2017-05-01] MEDS ORDERED: SALINE NASAL GEL 14.1gm TOP SCH (20:00)
--- NOTE | 2017-05-01 20:00 | History & Physical Report ---
History of Present Illness Date: 05/01/17 Chief complaint: dyspnea and back pain HPI: Estela is 56-year-old female with known atrial fibrillation, cardiomyopathy, chronic liver disease, and hepatitis C. She was recently hospitalized with respiratory failure/atrial fibrillation and discharged on metoprolol with spironolactone. She reports that she's had persistent exertional dyspnea which has worsened since discharge on 04/23 with increasing edema in her legs and abdomen. She describes her abdomen being swollen and bloated. She is unsure if there hais been a change in her weight. She complains of cough with green sputum production, PND, and dyspnea limiting activity to less than 1 room ambulation. Dyspnea causes her to panic at night and she is afraid to be by herself. She is unsure if her weight has changed. She describes getting lightheaded and dizzy without vertigo. She denies chest pain but has had increasing pain in the abdomen and in her "kidneys" which can trigger nausea. She presented to the emergency room due to persistent dyspnea and abdominal swelling or chest x-ray demonstrated increased vascular markings consistent with heart failure. Low-grade tachycardia was present with persistent atrial fibrillation. She was oxygenating adequately on room air but reported feeling better with supplemental oxygen on. She subsequently hospitalized for additional stabilization. Patient reports that she's been taking prescribed medications faithfully since discharge although also complained that she wasn't able to get the nicotine patch and one of her nebulized medications following discharge. Review of Systems All systems PM: 10-point ROS was reviewed, no additional remarkable complaints except (minor epistaxis due to a sore in her nares since having pneumonia in February, minor chest discomfort associated with severe abdominal discomfort and panic, decreased urine output recently. 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 Villagomez at [facility]. Hysterectomy at age 38. 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 Family History: Father-, lung cancer Mother-, lung cancer, uterine cancer, CAD, diabetes Maternal grandmother-, uterine cancer Sister-uterine cancer Family History Updates: As above - Social History Smoking status: Current some day smoker (trying to stop-previously 5 cigarettes a day; 2 cigarettes since discharge 04/23) Substance use type: marijuana (daily if she can afford it) Alcohol intake frequency: a few times a week (occasional beer) Household members: none (3 children-do not live in the area, ) Current occupational status: disabled Social history: PCP-Dr. Ford Cardiology-Dr. Fernandez Pulmonary-Dr. Bui DPOA-Patrick Connell, son Full code Medications Allergies Allergy/AdvReac Type Severity Reaction Status Date / Time meloxicam Allergy Severe THROAT Verified 05/01/17 15:11 SWELLING meperidine Allergy Severe Anaphylactic Verified 05/01/17 15:11 Shock bee venom protein (honey bee) Allergy Intermediate Vomiting Verified 05/01/17 15 :11 codeine Allergy Intermediate Hives Verified 05/01/17 15:11 methadone Allergy Intermediate WELTS Verified 05/01/17 15:11 adhesive AdvReac Mild Verified 05/01/17 15:11 Exam Vital Signs: Temperature 96.5 F L 05/01/17 18:58 Pulse Rate 112 H 05/01/17 18:58 Respiratory Rate 16 05/01/17 18:58 Blood Pressure 129/95 H 05/01/17 18:58 Pulse Oximetry 99 -2 L 05/01/17 18:58 EXAM: General-NAD, alert; weight 64.2 kg-up 3 kg from discharge HEENT-PERRL, EOMI without nystagmus, conjugate gaze, conjunctiva clear, sclera anicteric, facial structures symmetric, oropharynx clear, neck supple and without adenopathy Lungs-respirations nonlabored, good airflow, crackles at the bases, no wheezing Cardiac-irregular rhythm, S1 and S2, low-grade tachycardia Abd-distended, soft, mild generalized tenderness, stretch jacobsen, bowel sounds present; no edema palpable in the abdominal wall or flanks Ext-+2 pitting edema bilateral lower extremities Skin-multiple excoriations across the back, no generalized rash MS-no synovitis or joint swelling Neuro-cranial nerves 3-12 intact, MAEW, normal motor tone/power, sensation intact to light touch 4 extremities Psych-anxious, cooperative Height/Weight/BMI: Height 1.52 m Weight 64.2 kg Body Mass Index 27.6 Results - Labs CBC & Chem 7: 05/01/17 16:51 05/01/17 16:51 Labs: Liver enzymes unremarkable, troponin 0.017, proBNP 7760 UA unremarkable - ECG Data Tracing #1 Arrhythmias present: paroxysmal afib (with rapid response-ray 115), PVC's Conduction abnormalities present: RBBB - Imaging and Cardiology Chest x-ray Status: image reviewed by me (cardiomegaly, pacemaker wires and left chest, prior sternotomy, minor increase vascular markings; no clearly appreciated pulmonary nodules on single view chest.) US - abdomen Status: image reviewed by me (minimal ascites present) Assessment and Plan (1) Congestive heart failure Current visit: Yes Status: Acute (2) Atrial fibrillation with RVR Current visit: Yes Status: Acute Assessment and Plan: Impression: Acute on chronic CHF (HFrEF)/cardiomyopathy Volume overload Atrial fibrillation with RVR Hepatitis C with chronic liver disease COPD Pulmonary nodules-stable on short-term follow-up CT s/p TVR hx Uterine Ca/extensive family history uterine Ca Plan: Estela is hospitalized for rate control and diuresis. Weight is up and there is clear edema in the lower extremities. She is excessively worried about abdominal girth and I anticipated edema in the abdominal wall but don't see any. Continue metoprolol, may require increased dose. Dr. Fernandez consulted and notified of patient's hospitalization. IV Lasix tonight and again in the morning; monitor urine output and daily weight. Increase spironolactone to 25 mg daily. Continue usual regimen for COPD. - Physician Narrative Narrative: Date: 05/01/17 Time: 1954 Hospital Course Summary Disclaimer: The visit summary below is not to be considered part of the above Progress Note. Hospital Course: 05/01/17 Estela is hospitalized for atrial fibrillation with RVR and increased edema. Weight is up and there is moderate edema in the lower extremities. She is excessively worried about abdominal girth and I anticipated edema in the abdominal wall but don't see any. Continue metoprolol, may require increased dose. Dr. Fernandez consulted. Lasix tonight and again in the morning; monitor urine output and daily weight. Increase spironolactone to 25 mg daily. Continue usual regimen for COPD. Full code, she will return to the care of Dr. Ford at discharge.
[2017-05-01] MEDS: ONDANSETRON 4 MG/2 ML INJECTION IVP PRN (21:46)
[2017-05-01] MEDS: ACETAMINOPHEN 500 MG TABLET PO PRN (21:46)
[2017-05-01] MEDS: HYDROCODONE/APAP 7.5 MG/325 MG TABLET PO PRN (22:18)
[2017-05-01] MEDS: FUROSEMIDE 40 MG/4 ML INJECTION IVP SCH (22:25)
[2017-05-01] MEDS: ALBUTEROL/IPRATROPIUM 2.5mg-0.5mg/3ml NEB AEROSOL SCH (22:43)
[2017-05-02] MEDS: ACETAMINOPHEN 500 MG TABLET PO PRN ×2 (02:23→20:54)
[2017-05-02] MEDS: HYDROCODONE/APAP 7.5 MG/325 MG TABLET PO PRN ×4 (04:32→23:29)
[2017-05-02] MEDS: ONDANSETRON 4 MG/2 ML INJECTION IVP PRN ×3 (04:32→17:09)
[2017-05-02] MEDS ORDERED: SPIRONOLACTONE 25 MG TABLET PO SCH (09:00)
[2017-05-02] MEDS: FUROSEMIDE 40 MG/4 ML INJECTION IVP SCH (10:18)
[2017-05-02] MEDS: CLOPIDOGREL 75 MG TABLET PO SCH (10:18)
[2017-05-02] MEDS: SPIRONOLACTONE 25 MG TABLET PO SCH (10:19)
[2017-05-02] MEDS: SALINE FLUSH 10ml SYRINGE IVF PRN ×2 (10:19→17:10)
[2017-05-02] MEDS: LISINOPRIL 2.5 MG TABLET PO SCH (10:19)
--- NOTE | 2017-05-02 10:33 | Cardiology Consult Note ---
History of Present Illness Consult reason: known to you History of present illness: Ms. Connell is a 56-year-old female well known to me with a complex past cardiac and medical history including chronic atrial flutter, cardiomyopathy and valvular heart disease. Pt is also medically noncompliant. Pt is a poor historian because she is agitated and upset when asking questions. She was recently discharged from the hospital on 04/23 . she says she 's had some gradually increasing exertional dyspnea since then. In the last few days it got worse where she couldn't walk across the room without getting winded. She has been experiencing orhopnea ,PND and increased swelling in her legs and abdomen. She has been using more albuterol at home d/t dyspnea but not helping. She ran out of her pain pills and said that made the dyspnea worse. She came to the ER yesterday d/t PND x 3 nights. Pt denies chest pain and heart palpitations but says having increasing pain in her abdomen that radiates from front to back and "lung pain". She complains of dizziness and lightheadedness but no syncope. She complains of nausea due to the pain. She complains of cough that brings on the pain. She says her abdomen is swollen but does not weigh herself to know how much weight gain. Pt weighed 59 kg on 04/20 per consult note. She said she has not taken a nitro since before her last admission to the hospital. She says she has taken all her medications since last hospital discharge. The EKG in emergency room noted atrial flutter with RVR 115 beats per minute. She is currently on room air. she felt better when placed on supplemental oxygen although her O2 Sats never dropped.She says she's been compliant with her cardiac meds. She ran out of albuterol nebulizers ,which had helped. Last admission ,she was switched from Diltiazem to metoprolol due to LV Dysfunction . she was taken off Xarelto due to frequent falls,she was placed on Plavix due to A flutter and tissue TVR. She reports h/o anaphylaxis with NSAIDS, so wasn't treated with ASA. recent echocardiogram showed severe CMP ,good Function of TV bioprosthesis ,MR TR ,see report. previous heart cath 2014 showed no occlusive CAD. Review of Systems All systems PM: 10-point ROS was reviewed, no additional remarkable complaints except - Constitutional Constitutional: Absent: chills, fever(s), night sweats PFSH Patient Stated Medical History Cataracts Yes Cardiac Arrhythmia Yes: atrial flutter/afib Congestive Heart Failure Yes Hypertension Yes Valvular Heart Disease Yes Asthma Yes Bronchitis Yes: chronic Chronic Obstructive Pulmonary Yes Disease (COPD) Pneumonia Yes Other Respiratory Yes: emphysema Gastroesophageal Reflux Yes Disease Hepatitis Yes: hepatitis C Other GI Yes: indigestion all the time Hx Renal Disease Yes Other Hematologic Yes: hep c Other Infectious Yes: [place] SPOTTED FEVER Blood Transfusions Yes: no reported reactions Depression Yes Substance Use Disorder Yes: MARIJUANA Surgical History: 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 Villagomez at [facility] . Hysterectomy at age 38. Amputation of 5 toes due to complications of [place] spotted fever in 1997. 2014 no occlusive CAD ,done at [facility] [place] Family History Updates: unknown - Social History Smoking status: Current some day smoker (trying to stop-previously 5 cigarettes a day; 2 cigarettes since discharge 04/23) Substance use type: marijuana (pt adamantly denies any current or previous use of IV drugs) Alcohol intake frequency: does not drink Current occupational status: unemployed, disabled Current residence: Apartment/Private Home Medications Allergies Allergy/AdvReac Type Severity Reaction Status Date / Time meloxicam Allergy Severe THROAT Verified 05/01/17 15:11 SWELLING meperidine Allergy Severe Anaphylactic Verified 05/01/17 15:11 Shock bee venom protein (honey bee) Allergy Intermediate Vomiting Verified 05/01/17 15 :11 codeine Allergy Intermediate Hives Verified 05/01/17 15:11 methadone Allergy Intermediate WELTS Verified 05/01/17 15:11 adhesive AdvReac Mild Verified 05/01/17 15:11 Exam Vital signs: Temperature 97.0 F 05/02/17 07:31 Pulse Rate 106 H 05/02/17 10:20 Respiratory Rate 18 05/02/17 07:31 Blood Pressure 110/71 05/02/17 10:20 Pulse Oximetry 98 05/02/17 07:31 - Constitutional no acute distress, well developed, cooperative, agitated, other (chronically ill ) - Routine HEENT Exam Head: Present: normocephalic, atraumatic Eye: Present: EOMI, PERRL ENT: Present: mucous membranes moist Nose: moist mucous membranes - Routine Neck Exam Present: supple, JVD (moderate), normal carotid upstroke. Absent: carotid bruit , lymphadenopathy, thyromegaly - Routine Respiratory Exam Present: decreased breath sounds (bilateral lung bases), rhonchi (occasional B) . Absent: rales, respiratory distress, wheezes - Routine Cardiovascular Exam Present: tachycardia (mildly) - Routine Abdominal Exam Present: soft, normoactive bowel sounds, tenderness, distended, organomegaly. Absent: rebound, guarding - Routine Extremities Exam Present: edema (bilateral trace ankle edema), pulses intact, normal capillary refill. Absent: cyanosis, clubbing - Routine Skin Exam Present: intact, dry, rash (generalized hyperpigmentation on back). Absent: cyanosis, erythema - Routine Neurological Exam Present: alert, oriented X3, CN II-XII intact, moving all extremities, normal speech. Absent: facial asymmetry - Routine Psychiatric Exam Present: normal affect, cooperative, good insight, agitated Results 05/01/17 16:51 05/03/17 04:30 Comprehensive Metabolic Panel 05/02/17 Range/Units 04:14 Sodium 140 (134-144) MEQ/L Potassium 4.7 (3.6-5) MEQ/L Chloride 104 (98-107) MEQ/L Carbon Dioxide 25 (22-30) MEQ/L BUN 18.0 H (7-17) MG/DL Creatinine 1.0 D (0.7-1.2) MG/DL Glucose 101 (65-110) MG/DL Calcium 8.3 L (8.4-10.2) MG/DL Albumin 3.1 L (3.5-5.0) G/DL Intake and Output 05/01/17 05/02/17 05/02/17 22:59 06:59 14:59 Intake Total 0 / 0 500 / 500 Output Total 750 / 750 Balance 0 / 0 -250 / -250 Intake: Oral 0 / 0 500 / 500 Output: Urine 750 / 750 Other: Urine Appearance Clear Urine Color Yellow Urine Odor Normal # Voids 1 Weight 64.2 kg 64.1 kg Patient Weight 05/03/17 06:59 Weight 64.1 kg - Imaging and Cardiology Echo: report reviewed (04/23/17 severe global hypokinesis, LVEF of 20%) EKG results: report reviewed, image reviewed - EKG Interpretation EKG: no acute changes EKG interpretations - Dysrhythmias Supraventricular dysrhythmia: atrial flutter Ventricular dysrhythmias: ventricular premature complexes (with occasional PVC) - Blocks, axis, hypertrophy, ST abn AV and intraventricular conduction: 2 to 1 AV block (predominantly ), right bundle branch block (fixed/intermittent, complete/incomplete) (no acute changes) Assessment and Plan - Assessment and Plan Acute on chronic CHF systolic chronic atrial flutter.now with RVR nonischemic CMP tricuspid valve replacement, tissue h/o clotted mechanical TV prosthesis subsequently replaced by tissue valve. COPD exacerbation noncompliance hepatitis C Increase metoprolol to 75 mg. for rate control Increase spironolactone to 25. Concur with IV diuresis Leave lisinopril dose the same Pt is poor candidate for anticoagulation due to hx of falls. she has ASA allergy. continue Plavix. CHF education regarding diet, and regular wt Accurate I & O Check weights will follow pt along with you thank you for your consultaion! Hospital Course Summary Disclaimer: The visit summary below is not to be considered part of the above Progress Note. Hospital Course: 05/01/17 Estela is hospitalized for atrial fibrillation with RVR and increased edema. Weight is up and there is moderate edema in the lower extremities. She is excessively worried about abdominal girth and I anticipated edema in the abdominal wall but don't see any. Continue metoprolol, may require increased dose. Dr. Fernandez consulted. Lasix tonight and again in the morning; monitor urine output and daily weight. Increase spironolactone to 25 mg daily. Continue usual regimen for COPD. Full code, she will return to the care of Dr. Ford at discharge.
[2017-05-02] MEDS: ALBUTEROL/IPRATROPIUM 2.5mg-0.5mg/3ml NEB AEROSOL SCH ×2 (15:14→21:17)
[2017-05-02] MEDS ORDERED: SENNA + DOCUSATE TABLET PO SCH (21:00)
--- NOTE | 2017-05-02 21:09 | Progress Note ---
- Date 05/02/17 Subjective: Estela reports that Lasix is helping and that she doesn't feel as bloated today or feel short of breath. She gets short of breath when she gets up to the bathroom and moves around but at rest breathing is definitely improved. She denies chest pain. She reports having some nausea but no vomiting. She had a bowel movement earlier today. She is unsure if she is lightheaded reporting that she might be when she stands for very long. She does feel weak. Left flank/ back pain persists but right-sided symptoms are better. She denies hematuria. Objective Vital signs: Temperature 97.2 F 05/02/17 17:07 Pulse Rate 111 H 05/02/17 17:07 Respiratory Rate 20 05/02/17 17:07 Blood Pressure 107/83 05/02/17 17:07 Pulse Oximetry 96 -RA 05/02/17 18:41 I/O-incomplete Weight unchanged from admission EXAM General-NAD, alert HEENT-conjunctiva clear, conjugate gaze Lungs-respirations nonlabored, good airflow, breath sounds clear today Cardiac-regular rhythm, S1-S2, low-grade tachycardia; external neck veins distended but a can't distinctly see internal vein pulsations Abd-moderately distended, soft, nontender, bowel sounds present; left flank tenderness present Ext-+1-2 bilateral lower extremity edema Neuro-MAEW Psych-talkative, anxious - Rhythm: Atrial Flutter with 2:1 Conduction Height/Weight/BMI: Height 1.52 m Weight 64.1 kg Body Mass Index 27.6 Results - Labs CBC & Chem 7: 05/01/17 16:51 05/02/17 04:14 Labs: INR 1.81 Magnesium 1.8 Assessment and Plan (1) Congestive heart failure Current visit: Yes Status: Acute (2) Atrial fibrillation with RVR Problem details: Atrial flutter Current visit: Yes Status: Acute Assessment and Plan: Impression: Acute on chronic CHF (HFrEF)/cardiomyopathy Volume overload Atrial fibrillation/flutter with RVR Hepatitis C with chronic liver disease Coagulopathy of chronic liver disease COPD Pulmonary nodules-stable on short-term follow-up CT s/p TVR hx Uterine Ca/extensive family history uterine Ca Plan: Patient reports diuresing well, continue the same with IV Lasix today and reassess tomorrow. Discussed with Dr. Fernandez-metoprolol dose increased to 75 mg daily. Telemetry strips reviewed by myself-appears to be flutter with 2-1 conduction and rate of 110. Hope to be able to convert to oral Lasix tomorrow after diuresis further. Case management reports patient has not permitted home health follow-up or physical therapy to work with her since discharge. DVT Prophylaxis: SCD's Resuscitation Status: Full Code - Physician Narrative Narrative: Date: 05/02/17 Time: 2105 Hospital Course Summary Disclaimer: The visit summary below is not to be considered part of the above Progress Note. Hospital Course: 05/01/17 Estela is hospitalized for atrial fibrillation with RVR and increased edema. Weight is up and there is moderate edema in the lower extremities. She is excessively worried about abdominal girth and I anticipated edema in the abdominal wall but don't see any. Continue metoprolol, may require increased dose. Dr. Fernandez consulted. Lasix tonight and again in the morning; monitor urine output and daily weight. Increase spironolactone to 25 mg daily. Continue usual regimen for COPD. Full code, she will return to the care of Dr. Ford at discharge. 05/02/17 Patient reports diuresing well, continue the same with IV Lasix today and reassess tomorrow. Discussed with Dr. Fernandez-metoprolol dose increased to 75 mg daily. Telemetry strips reviewed by myself-appears to be flutter with 2-1 conduction and rate of 110.
[2017-05-03] MEDS: ALBUTEROL/IPRATROPIUM 2.5mg-0.5mg/3ml NEB AEROSOL SCH ×4 (06:46→19:10)
[2017-05-03] MEDS: HYDROCODONE/APAP 7.5 MG/325 MG TABLET PO PRN ×2 (07:02→14:16)
[2017-05-03 08:08] VITALS: TEMP 95.5
[2017-05-03] MEDS ORDERED: FUROSEMIDE 40 MG TABLET PO SCH (09:00)
[2017-05-03] MEDS: CLOPIDOGREL 75 MG TABLET PO SCH (10:25)
[2017-05-03] MEDS: LISINOPRIL 2.5 MG TABLET PO SCH (10:26)
[2017-05-03] MEDS: FUROSEMIDE 40 MG/4 ML INJECTION IVP SCH (10:29)
[2017-05-03] MEDS: SPIRONOLACTONE 25 MG TABLET PO SCH (10:30)
[2017-05-03] MEDS: ONDANSETRON 4 MG/2 ML INJECTION IVP PRN (14:15)
--- NOTE | 2017-05-03 15:14 | Discharge Summary ---
Discharge Information Date of admission: 05/01/17 18:41 Anticipated date of discharge: 05/03/17 Attending Physician: Ruba Quinonez MD Primary care physician: Hu Ford DO Consults: Consulting Provider: Trent Fernandez - Discharge Diagnosis (1) Congestive heart failure Status: Acute (2) Atrial fibrillation with RVR Status: Acute Acute on chronic CHF (HFrEF)/cardiomyopathy Volume overload Atrial fibrillation/flutter with RVR Hepatitis C with chronic liver disease Coagulopathy of chronic liver disease COPD Pulmonary nodules-stable on short-term follow-up CT s/p TVR hx Uterine Ca/extensive family history uterine Ca - Laboratory Labs: 05/03/17 04:30 - Radiology Radiology: Date of Exam: 05/01/17 Indication: SOA PROCEDURE: XR chest 1V: Findings: Chest is stable in appearance. No new or worsening airspace disease. No pneumothorax. Emphysema. Small pleural effusions. Heart size and mediastinal contours are stable. Pulmonary vascularity is mildly prominent. Prior sternotomy changes. Impression: Stable chest with mild pulmonary edema. Date of Exam: 05/01/17 Indication: SOA 2/ ascites PROCEDURE: US abdomen limited: Findings: There is a small volume of ascites present in the the abdomen. This would likely be below the threshold for any benefit from a therapeutic paracentesis. History of Present Illness HPI: Estela is 56-year-old female with known atrial fibrillation, cardiomyopathy, chronic liver disease, and hepatitis C. She was recently hospitalized with respiratory failure/atrial fibrillation and discharged on metoprolol with spironolactone. She reports that she's had persistent exertional dyspnea which has worsened since discharge on 04/23 with increasing edema in her legs and abdomen. She describes her abdomen being swollen and bloated. She is unsure if there has been a change in her weight. She complains of cough with green sputum production, PND, and dyspnea limiting activity to less than 1 room ambulation. Dyspnea causes her to panic at night and she is afraid to be by herself. She is unsure if her weight has changed. She describes getting lightheaded and dizzy without vertigo. She denies chest pain but has had increasing pain in the abdomen and in her "kidneys" which can trigger nausea. She presented to the emergency room due to persistent dyspnea and abdominal swelling or chest x-ray demonstrated increased vascular markings consistent with heart failure. Low- grade tachycardia was present with persistent atrial fibrillation. She was oxygenating adequately on room air but reported feeling better with supplemental oxygen on. She subsequently hospitalized for additional stabilization. Patient reports that she's been taking prescribed medications faithfully since discharge although also complained that she wasn't able to get the nicotine patch and one of her nebulized medications following discharge. Objective Vital signs: Temperature 95.5 F L 05/03/17 08:00 Pulse Rate 114 H 05/03/17 11:17 Respiratory Rate 18 05/03/17 11:03 Blood Pressure 116/81 05/03/17 11:17 Pulse Oximetry 96 05/03/17 14:44 Rhythm: Atrial Flutter with 2:1 Conduction Height/Weight/BMI: Height 1.52 m Weight 64.1 kg Body Mass Index 27.6 - Constitutional Present: no acute distress, well nourished, well developed - Routine HEENT Exam Head: Present: normocephalic, atraumatic - Routine Respiratory Exam Present: decreased breath sounds. Absent: wheezes - Routine Cardiovascular Exam Present: RRR (a flutter), tachycardia - Routine Abdominal Exam Present: soft, tenderness (L side of abdomen), non distended, non tender - Routine Extremities Exam Present: edema (ankles to thighs), normal capillary refill - Routine Skin Exam Present: dry, warm - Routine Neurological Exam Present: alert, oriented X3 - Routine Lymphatic Exam Lymphatic: Absent: adenopathy - Routine Psychiatric Exam Present: normal affect, cooperative Hospital Course This is a general summary of the patient's hospital course. For more details refer to the complete medical record. Hospital course: 05/01/17 Estela is hospitalized for atrial fibrillation with RVR and increased edema. Weight is up and there is moderate edema in the lower extremities. She is excessively worried about abdominal girth and I anticipated edema in the abdominal wall but don't see any. Continue metoprolol, may require increased dose. Dr. Fernandez consulted. Lasix tonight and again in the morning; monitor urine output and daily weight. Increase spironolactone to 25 mg daily. Continue usual regimen for COPD. Full code, she will return to the care of Dr. Ford at discharge. 05/02/17 Patient reports diuresing well, continue the same with IV Lasix today and reassess tomorrow. Discussed with Dr. Fernandez-metoprolol dose increased to 75 mg daily. Telemetry strips reviewed by myself-appears to be flutter with 2-1 conduction and rate of 110. 05/03/17 Metoprolol increased to 100 mg for improved rate control. Dismissed on Lasix 40 mg daily. Resume home health. F-u with Dr. Ford early next week. Time spent with patient: discharge greater than 30 minutes Resuscitation Status: Full Code Discharge Plan - Discharge Disposition Discharge Date: 05/03/17 Disposition: [facility] Service *Condition: Improved Reason For Visit (Visit label in EMR): Soa,Afib with RVR - Discharge Medications *Discharge Medications: New Metoprolol Succinate (XL) [Toprol Xl] 100 mg PO DAILY #30 tab Spironolactone [Aldactone] 25 mg PO DAILY #30 tab Hydrocodone/APAP 7.5/325 [[place] 7.5/325] 1 tab PO Q6H PRN #20 tab PRN Reason: Pain Nicotine Patch [Nicoderm] 7 mg TD DAILY #28 patch Furosemide [Lasix] 40 mg PO DAILY #30 tab Continue Acetaminophen [Tylenol] 1,000 mg PO Q6H PRN tab PRN Reason: Pain Albuterol Sulfate 2.5 mg AEROSOL Q4H PRN #30 vial.neb PRN Reason: Shortness Of Air/Wheezing Albuterol/Ipratropium [Duoneb] 3 ml AEROSOL QID #120 each Clopidogrel [Plavix] 75 mg PO DAILY #30 tab Lisinopril [Prinivil] 2.5 mg PO DAILY #30 tab CALCIUM CARBONATE Chewable [Tums Extra Strength] 750 mg PO PRN PRN tab.chew PRN Reason: Dyspepsia Mag-Al + Sim Oral Liq [Maalox Plus] 30 ml PO Q3H PRN udc PRN Reason: Indigestion Discontinued Metoprolol Succinate (XL) [Toprol Xl] 50 mg PO DAILY #30 tab Spironolactone [Aldactone] 12.5 mg PO DAILY #30 tab - Discharge Packet/Instructions *Diet: Low-sodium *Activity: As tolerated *Pain Management/Treatment: n/a *Wound Care: n/a Additional Instructions: Your metoprolol and spironolactone doses were increased. You will have new prescriptions for these medications. *Expected Signs/Symptoms: GIven your heart and lung disease, you will become short of breath easily with exertion *Notify Physician if: you develop fever or increasing shortness of breath *During Business Hours Contact: Dr Ford *After Business Hours Contact: [facility] at [phone] and ask for the provider senior staff consultant. *Pending Lab/Results: No Pending Lab - Referrals/Follow Up *Referrals/Follow Up: Hu Ford DO [Family Provider] - 05/09/17 1:00 pm (early next week) - Patient Handouts Patient Handouts: Heart Failure (DC), A-fib (Atrial Fibrillation) (GEN) - Dismissal Complete Discharge Instructions are:: Complete Physician Narrative - Narrative Physician: Ruba Quinonez MD Attestation Narrative: Date: 05/03/17 Time: 1819 I have independently evaluated and examined this patient. I reviewed the chart, the patient's history, and the [employer]/PA's documented findings as above. We discussed and formulated the assessment and plan as above with additions as below: Estela was seen several times throughout the day. She reported that she feels better with reduced dyspnea, decreased abdominal distention and flank pain ( although it's not entirely gone), and decreased peripheral edema at the ankles and in her feet. She is slept well and had no PND and is voiding much more than she did prior to hospitalization. Patient was alert when initially seen although groggy later in the day. She continues to wear 1 L supplemental oxygen for comfort although it is oxygenating well on room air; Oxygen was turned off and she continued wear the nasal cannula without noting any change and oxygen remained stable. Ambulatory oximetry was attempted late this afternoon-ambulation limited by exertional dyspnea however oxygen saturation remained above 90% on room air. Respirations were nonlabored with good airflow and breath sounds are relatively clear with only faint crackles at the bases and no wheezing. Abdomen is softer than it was on admission and there is residual pitting edema in the mid shins but no edema is present at the ankles or dorsal feet. Stable for discharge; heart rate remained 110 +/- 3-4 beats through the early part of the day, metoprolol was increased to 100 mg per day and she received a single 5 mg dose of IV metoprolol after which heart rate slowed into the 80s. She will remain on metoprolol-ER at 100 mg daily, increase spironolactone to 25 mg daily, and add Lasix 40 mg daily to her regimen. Prescriptions for limited number of [place] were written pending follow-up with Dr. Ford and a prescription for nicotine patches was provided. Patient reports she wants to have home health and home physical therapy and had limited explanation for why she has refused follow-up with home health since prior hospitalization.
[2017-05-03 15:26] VITALS: BP 92/65; RESP 17
[2017-05-03] MEDS ORDERED: METOPROLOL 5mg/5ml INJECTION IVP ONE (16:01)
--- NOTE | 2017-05-03 16:37 | Cardiology Progress Note ---
Subjective Interval history: Pt is laying on her left side due to upset stomach and nausea. Pt's lunch is on tray next to her, but she has not ate yet. Pt says overall she feels better today. Pt is more cooperative and interactive. Pt says breathing has improved, but still having dyspnea. Pt currently on 1L of O2. Pt denies angina or pressure and palpitations. Pt still complains of cough with more green sputum production. Pt complaining of lightheaded and dizziness. She's been up to BR, much less SOA . Exam Vital signs: Temperature 95.5 F L 05/03/17 08:00 Pulse Rate 90 05/03/17 15:24 Respiratory Rate 17 05/03/17 15:24 Blood Pressure 92/65 05/03/17 15:24 Pulse Oximetry 93 05/03/17 15:24 - Constitutional no acute distress, well developed, cooperative - Routine HEENT Exam Head: Present: normocephalic, atraumatic Eye: Present: EOMI, PERRL ENT: Present: mucous membranes moist - Routine Neck Exam Present: supple, JVD (mild) - Routine Respiratory Exam Present: CTA bilaterally, wheezes (occasional wheeze), diminished air movement - Routine Cardiovascular Exam Present: tachycardia (mildly) - Routine Abdominal Exam Present: tenderness (nonspecific), distended (decreased bowel sounds). Absent: normoactive bowel sounds, rebound (no peritoneal irritation), guarding - Routine Extremities Exam Present: no edema (bilaterally). Absent: cyanosis, clubbing - Routine Skin Exam Present: lesions (hyperpigmentation on back ) - Routine Neurological Exam Present: alert, oriented X3, CN II-XII intact, moving all extremities, vision grossly intact, hearing grossly intact, normal speech. Absent: motor deficit, facial asymmetry - Routine Psychiatric Exam Present: normal affect, normal thought process, cooperative, good insight Results 05/01/17 16:51 05/03/17 04:30 Comprehensive Metabolic Panel 05/03/17 Range/Units 04:30 Sodium 137 (134-144) MEQ/L Potassium 4.3 (3.6-5) MEQ/L Chloride 99 (98-107) MEQ/L Carbon Dioxide 26 (22-30) MEQ/L BUN 27.0 H D (7-17) MG/DL Creatinine 1.1 (0.7-1.2) MG/DL Glucose 104 (65-110) MG/DL Calcium 8.8 (8.4-10.2) MG/DL Intake and Output 05/03/17 05/03/17 05/03/17 06:59 14:59 22:59 Intake Total 900 / 900 480 / 480 Output Total 2300 / 2300 1300 / 1300 Balance -1400 / -1400 -820 / -820 Intake: Oral 900 / 900 480 / 480 Output: Urine 2300 / 2300 1300 / 1300 Other: Urine Appearance Clear Urine Color Light Alana Urine Odor Normal # Voids 1 Weight 64.1 kg Patient Weight 05/04/17 06:59 Weight 64.1 kg - Imaging and Cardiology Echo: report reviewed Cardiac cath: report reviewed EKG results: report reviewed, image reviewed - EKG Interpretation EKG shows: tachycardia (atrial flutter with RBBB 109 HR. tele reviewed in detail.) Assessment and Plan - Assessment and Plan Acute on chronic CHF COPD exacerbation chronic atrial flutter. Pt is poor candidate for anticoagulation due to hx of falls. tricuspid valve replacement, tissue Metoprolol 5mg IV once now for better rate control until reach steady state. Agree to increase to 100mg of Metoprolol. Agree with diuresis upon discharge. Agree with discharge. Hospital Course Summary Disclaimer: The visit summary below is not to be considered part of the above Progress Note. Hospital Course: 05/01/17 Estela is hospitalized for atrial fibrillation with RVR and increased edema. Weight is up and there is moderate edema in the lower extremities. She is excessively worried about abdominal girth and I anticipated edema in the abdominal wall but don't see any. Continue metoprolol, may require increased dose. Dr. Fernandez consulted. Lasix tonight and again in the morning; monitor urine output and daily weight. Increase spironolactone to 25 mg daily. Continue usual regimen for COPD. Full code, she will return to the care of Dr. Ford at discharge. 05/02/17 Patient reports diuresing well, continue the same with IV Lasix today and reassess tomorrow. Discussed with Dr. Fernandez-metoprolol dose increased to 75 mg daily. Telemetry strips reviewed by myself-appears to be flutter with 2-1 conduction and rate of 110. 05/03/17 Metoprolol increased to 100 mg for improved rate control. Dismissed on Lasix 40 mg daily. Resume home health. F-u with Dr. Ford early next week.
[2017-05-03 17:40] VITALS: PULSE 87; O2SAT 96
== END 2017-05-03 18:20 | disposition home health service (06) ==
LOC: ED 14:14 → MED 14:14
PROVIDERS: ADMIT Internal Medicine; ATTEND Internal Medicine

== ENCOUNTER 2017-09-10 09:45 | Inpatient (IN) ==
[2017-09-10 10:53] VITALS: BMI 23.1
[2017-09-10] MEDS ORDERED: DOFETILIDE 125 MCG CAPSULE PO SCH (11:45)
--- OUTSIDE RECORDS SUMMARY | 2017-09-10 11:59 | External Medical Summary ---
[...] Medications Results No Known Results Summary Purpose [employer] Submission
--- NOTE | 2017-09-10 13:38 | Pharmacy Consult ---
Pharmacy Consult-Other Meds - Consult Information Tikosyn dosing: S Cr = 0.7 mg/dL Cr Cl = 70 mL/min QTc = 393 09/11/17 am FOR NEW START: Pt. MUST be on Telemetry & Dr. authorized to prescribe. DO NOT USE IF: QTc > 440, Cr Cl < 20. Dosing: Cr Cl > 60 = 500mcg po bid (Starting with 500 mg po bid) Cr Cl 40-60 = 250mcg po bid Cr Cl 20-40 = 125mcg po bid 2-3hrs post 1st dose recheck QTc: If QTc increase is < 15% continue dose. If QTc increase is > 15% or > 500msec, adjust dose. 2nd dose & subsequent: if QTc > 500msec, DC therapy. Dispense 7 day supply + Med Guide on discharge. No Charge Thanks, Satya Nino [facility]
[2017-09-10] MEDS: --POM--FUROSEMIDE 40 MG TABLET PO SCH (14:28)
[2017-09-10] MEDS: --POM--LISINOPRIL 2.5 MG TABLET PO SCH (14:28)
[2017-09-10] MEDS: NICOTINE 7 MG PATCH TD SCH (14:32)
[2017-09-10] MEDS: ALBUTEROL/IPRATROPIUM 2.5mg-0.5mg/3ml NEB AEROSOL SCH ×2 (14:44→18:55)
[2017-09-10] MEDS ORDERED: ALBUTEROL 2.5mg/3ml (0.083%) NEB AEROSOL PRN (15:00)
[2017-09-10] MEDS: --POM--RIVAROXABAN 20 MG TABLET PO SCH (18:29)
--- NOTE | 2017-09-10 18:34 | Pharmacy Consult ---
Pharmacy Consult-Other Meds - Consult Information QTc = 513ms, Dr. Fernandez will reduce dose of dofetilide to 250mcg po q12h with next dose being at 0001 on 09/11. QTc ordered for 0300. Noon dose will be evaluated in a.m. with the latest QTc reading.
--- NOTE | 2017-09-10 21:09 | Cardiology History & Physical ---
History of Present Illness HPI: shotrness of breath much better after converting to SR. no angina. no further palpitations. [facility] Patient Stated Medical History Cataracts Yes Cardiac Arrhythmia Yes: atrial flutter/afib Congestive Heart Failure Yes Hypertension Yes Valvular Heart Disease Yes Asthma Yes Bronchitis Yes: chronic Chronic Obstructive Pulmonary Yes Disease (COPD) Pneumonia Yes Other Respiratory Yes: emphysema Gastroesophageal Reflux Yes Disease Hepatitis Yes: hepatitis C Other GI Yes: indigestion all the time Hx Renal Disease Yes Other Hematologic Yes: hep c Sepsis Yes Other Infectious Yes: CARMELITA MOUNT[place] SPOTTED FEVER Blood Transfusions Yes: no reported reactions Depression Yes Substance Use Disorder Yes: MARIJUANA Surgical History: 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 Villagomez at [facility] . Hysterectomy at age 38. 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 HC 2014 no occlusive CAD ,done at [facility] Family History Updates: unknown - Social History Smoking status: Current every day smoker Substance use type: marijuana (pt adamantly denies any current or previous use of IV drugs) Alcohol intake frequency: does not drink Housing: apartment Household members: none (3 children-do not live in the area, ) Current occupational status: unemployed, disabled Current residence: Apartment/Private Home Medications Home Medications Medication Instructions Recorded Confirmed Type Acetaminophen [Tylenol] 1,000 mg PO Q6H PRN tab 04/23/17 09/10/17 Rx Albuterol Sulfate 2.5 mg AEROSOL Q4H PRN #30 vial.neb 04/23/17 05/01/17 Rx Albuterol/Ipratropium [Duoneb] 3 ml AEROSOL QID #120 each 04/23/17 09/10/17 Rx CALCIUM CARBONATE Chewable [Tums 750 mg PO PRN PRN tab.chew 04/23/17 09/10/17 Rx Extra Strength] Lisinopril [Prinivil] 2.5 mg PO DAILY #30 tab 04/23/17 09/10/17 Rx Mag-Al + Sim Oral Liq [Maalox Plus] 30 ml PO Q3H PRN udc 04/23/17 09/10/17 Rx Furosemide [Lasix 40 mg Tab] 40 mg PO DAILY #30 tab 05/03/17 09/10/17 Rx Hydrocodone/APAP 7.5/325 [[place] 1 tab PO Q6H PRN #20 tab 05/03/17 09/10/17 Rx 7.5/325] Nicotine Patch [Nicoderm] 7 mg TD DAILY #28 patch 05/03/17 09/10/17 Rx Albuterol HFA Inhaler [Ventolin 1 puff ORAL INH O PRN 09/10/17 09/10/17 History Hfa 90 mcg/actuation] DiltiaZEM CD [Cardizem CD 120 MG] 120 mg PO DAILY 09/10/17 09/10/17 History Furosemide [Lasix] 20 mg PO PM 09/10/17 09/10/17 History Rivaroxaban [Xarelto] 20 mg PO DAILY 09/10/17 09/10/17 History Allergies Allergy/AdvReac Type Severity Reaction Status Date / Time meloxicam Allergy Severe THROAT Verified 05/01/17 15:11 SWELLING meperidine Allergy Severe Anaphylactic Verified 05/01/17 15:11 Shock bee venom protein (honey bee) Allergy Intermediate Vomiting Verified 05/01/17 15 :11 codeine Allergy Intermediate Hives Verified 05/01/17 15:11 methadone Allergy Intermediate WELTS Verified 05/01/17 15:11 adhesive AdvReac Mild Verified 05/01/17 15:11 Exam Vital signs: Temperature 98.0 F 09/10/17 10:35 Pulse Rate 75 09/10/17 20:00 Respiratory Rate 20 09/10/17 18:55 Blood Pressure 144/89 H 09/10/17 17:01 Pulse Oximetry 96 09/10/17 18:55 - Constitutional no acute distress, other (chrnoically ill) - Routine HEENT Exam Head: Present: normocephalic, atraumatic Eye: Present: EOMI, PERRL ENT: Present: mucous membranes moist - Routine Neck Exam Present: normal carotid upstroke. Absent: JVD, carotid bruit, lymphadenopathy, thyromegaly - Routine Respiratory Exam Present: CTA bilaterally, diminished air movement - Routine Cardiovascular Exam Present: RRR. Absent: JVD - Routine Abdominal Exam Present: soft, normoactive bowel sounds, non distended, non tender. Absent: organomegaly, mass - Routine Extremities Exam Present: no edema, pulses intact, normal capillary refill. Absent: cyanosis, clubbing - Routine Skin Exam Present: intact, dry, rash (chronic hypopigmented spots on trunk and exteremities.). Absent: cyanosis, erythema - Routine Neurological Exam Present: alert, oriented X3, CN II-XII intact, moving all extremities, vision grossly intact, hearing grossly intact, normal speech. Absent: motor deficit, hemineglect, facial asymmetry - Routine Psychiatric Exam Present: normal affect, normal thought process, cooperative. Absent: depressed , anxious Results 09/10/17 10:38 09/11/17 07:15 Cardiac Enzymes 09/10/17 Range/Units 10:38 AST 26 (14-36) U/L CBC 09/10/17 Range/Units 10:38 WBC 7.6 (4.5-11.0) T/MM3 RBC 4.65 (4.00-5.20) M/MM3 Hgb 13.8 (12-16) GM/DL Hct 42.6 (36-46) % Plt Count 189 (130-400) T/MM3 Neut # (Auto) 5.1 (1.8-7.7) T/MM3 Lymph # (Auto) 1.7 (1-4.8) T/MM3 [place] # (Auto) 0.6 (0-0.8) T/MM3 Eos # (Auto) 0.2 (0-0.5) T/MM3 Baso # (Auto) 0.0 (0-0.2) T/MM3 Comprehensive Metabolic Panel 09/10/17 09/10/17 Range/Units 10:38 10:38 Sodium 144 144 (136-146) MEQ/L Potassium 3.6 3.6 (3.6-5) MEQ/L Chloride 109 H 109 H (98-107) MEQ/L Carbon Dioxide 24 25 (22-30) MEQ/L BUN 21.0 H 21.0 H (7-17) MG/DL Creatinine 0.7 0.7 (0.7-1.2) mg/dL Glucose 102 101 (65-110) MG/DL Calcium 9.5 9.5 (8.4-10.2) MG/DL AST 26 (14-36) U/L ALT 15 (1-35) U/L Alkaline Phosphatase 125 (38-126) U/L Total Protein 7.4 (6.3-8.2) g/dL Albumin 4.0 (3.5-5.0) g/dL Intake and Output 09/10/17 09/10/17 09/10/17 06:59 14:59 22:59 Intake Total 120 / 120 640 / 640 Output Total 1200 / 1200 Balance 120 / 120 -560 / -560 Intake: Oral 120 / 120 640 / 640 Output: Urine 1200 / 1200 Other: Urine Appearance Clear Urine Color Yellow Weight 53.8 kg Patient Weight 09/11/17 06:59 Weight 53.8 kg - Imaging and Cardiology EKG results: image reviewed Hospital Course This is a general summary of the patient's hospital course. For more details refer to the complete medical record. 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 in ccu ,planned CCU admission to initiate Tikosyn and watch for proaarythmia, and originally planned SHARON/CV on after 5 doses are on board. pt converted quickly after first dose. Xarelto restarted last wk , for CV. pt hasn't had severe falls. QT over 500 msec , dose of Tikosyn lowered to 250 mcg q 12hr. Tikosyn protocol initiated w/ pharmacy consult. HR now normal ,in SR , will d/c Diltizem d/t low EF. unfortunately intolerant to carvedilol metoprolol and bisoprolol. pt is doing well.
[2017-09-11] MEDS ORDERED: DOFETILIDE 125 MCG CAPSULE PO SCH ×3 (00:05→11:59)
[2017-09-11] MEDS: ALBUTEROL/IPRATROPIUM 2.5mg-0.5mg/3ml NEB AEROSOL SCH ×4 (07:20→19:38)
[2017-09-11] MEDS: --POM--FUROSEMIDE 40 MG TABLET PO SCH (08:45)
[2017-09-11] MEDS: --POM--LISINOPRIL 2.5 MG TABLET PO SCH (08:45)
[2017-09-11] MEDS: NICOTINE 7 MG PATCH TD SCH (08:46)
[2017-09-11] MEDS: NICOTINE PATCH REMOVAL TD SCH (08:46)
--- NOTE | 2017-09-11 10:27 | Cardiology Progress Note ---
Subjective Interval history: feeling very well .slept very well , almost to her surprise. breathing well , no palpitations anymore. no angina or dizziness. hasn't been up today. good appetite and energy. No problems w/ BM or urine. she notices urinating a lot and breathing much better. tele SR PAC's , occ PVC's prolonged QT EKG SR 80's RBBB prolonged QTc 513 msec per computer measurement. risks and benefits and alternatives d/w pt in detail ,shane. risk of proaarhythmia w/ Tokosyn vs. chcf toxocity w/ other antiarrhythmic Rx such as Amiodarone w/ the potential for cumulative toxicity including risk of pulm fibrosis in this 57 yo pt, pt accepts the risk of proarhythmia , in my judgement estimated about 2% labs reviewed , MG BMP ordered for today , d/w RN, and pharmacist input appreciated. Exam Vital signs: Temperature 98.0 F 09/10/17 10:35 Pulse Rate 66 09/11/17 08:00 Respiratory Rate 19 09/11/17 07:20 Blood Pressure 101/67 09/11/17 05:00 Pulse Oximetry 99 09/11/17 07:20 Inpatient Medications: Generic Name Dose Route Start Last Admin Trade Name Freq PRN Reason Stop Dose Admin Albuterol Sulfate 2.5 mg 09/10/17 15:00 Proventil Neb (0.083%) AEROSOL Q6H PRN SHORTNESS OF AIR Albuterol/Ipratropium 3 ml 09/10/17 14:00 09/11/17 07:20 Duoneb AEROSOL 3 ml RTQID SOLEDAD Administration Dofetilide 125 mcg 09/11/17 11:59 Tikosyn PO BID SOLEDAD Furosemide 40 mg 09/10/17 12:45 09/11/17 08:45 Lasix 40 Mg Tab PO 40 mg DAILY SOLEDAD Administration Furosemide 20 mg 09/11/17 17:00 09/10/17 18:29 Lasix 20 Mg Tab PO 20 mg DAILY SOLEDAD Administration Lisinopril 2.5 mg 09/10/17 12:45 09/11/17 08:45 Prinivil PO 2.5 mg DAILY SOLEDAD Administration Nicotine 7 mg 09/10/17 13:00 09/11/17 08:46 Nicoderm TD 7 mg DAILY SOLEDAD Administration Nicotine 1 removal 09/11/17 09:00 09/11/17 08:46 Nicotine Patch Removal TD 1 removal DAILY SOLEDAD Administration Rivaroxaban 20 mg 09/10/17 17:30 09/10/17 18:29 Xarelto PO 20 mg WS SOLEDAD Administration Discontinued Medications Generic Name Dose Route Start Last Admin Trade Name Yaya PRN Reason Stop Dose Admin Diltiazem HCl 120 mg 09/10/17 12:45 09/10/17 14:28 Cardizem Cd 120 Mg PO 120 mg DAILY SOLEDAD Administration Dofetilide 500 mcg 09/10/17 11:45 09/10/17 12:33 Tikosyn PO 09/10/17 23:46 500 mcg Q12H SOLEDAD Administration Dofetilide 500 mcg 09/11/17 09:00 Tikosyn PO BID SOLEDAD Dofetilide 250 mcg 09/11/17 00:05 09/11/17 00:20 Tikosyn PO 250 mcg Q12H SOLEDAD Administration Dofetilide 125 mcg 09/11/17 11:59 Tikosyn PO Q12H SOLEDAD - Constitutional no acute distress - Routine HEENT Exam Head: Present: normocephalic, atraumatic Eye: Present: EOMI, PERRL - Routine Neck Exam Present: normal carotid upstroke. Absent: JVD, carotid bruit, lymphadenopathy, thyromegaly - Routine Respiratory Exam Present: CTA bilaterally, diminished air movement - Routine Cardiovascular Exam Present: no murmur, irregular rhythm. Absent: bradycardia, tachycardia - Routine Abdominal Exam Present: soft, normoactive bowel sounds, non distended, non tender. Absent: organomegaly, mass - Routine Extremities Exam Present: no edema. Absent: cyanosis, clubbing - Routine Skin Exam Present: intact, warm. Absent: cyanosis, erythema - Routine Neurological Exam Present: alert, oriented X3, CN II-XII intact, moving all extremities, hearing grossly intact, normal speech. Absent: altered mental status, hemineglect, facial asymmetry - Routine Psychiatric Exam Present: normal affect, normal thought process, cooperative, good insight, good judgment. Absent: depressed, anxious Results 09/10/17 10:38 09/11/17 07:15 Cardiac Enzymes 09/10/17 Range/Units 10:38 AST 26 (14-36) U/L CBC 09/10/17 Range/Units 10:38 WBC 7.6 (4.5-11.0) T/MM3 RBC 4.65 (4.00-5.20) M/MM3 Hgb 13.8 (12-16) GM/DL Hct 42.6 (36-46) % Plt Count 189 (130-400) T/MM3 Neut # (Auto) 5.1 (1.8-7.7) T/MM3 Lymph # (Auto) 1.7 (1-4.8) T/MM3 [place] # (Auto) 0.6 (0-0.8) T/MM3 Eos # (Auto) 0.2 (0-0.5) T/MM3 Baso # (Auto) 0.0 (0-0.2) T/MM3 Comprehensive Metabolic Panel 09/10/17 09/10/17 09/11/17 Range/Units 10:38 10:38 07:15 Sodium 144 144 142 (136-146) MEQ/L Potassium 3.6 3.6 5.0 D (3.6-5) MEQ/L Chloride 109 H 109 H 104 (98-107) MEQ/L Carbon Dioxide 24 25 30 (22-30) MEQ/L BUN 21.0 H 21.0 H 31.0 H D (7-17) MG/DL Creatinine 0.7 0.7 0.8 (0.7-1.2) mg/dL Glucose 102 101 89 (65-110) MG/DL Calcium 9.5 9.5 9.4 (8.4-10.2) MG/DL AST 26 (14-36) U/L ALT 15 (1-35) U/L Alkaline Phosphatase 125 (38-126) U/L Total Protein 7.4 (6.3-8.2) g/dL Albumin 4.0 (3.5-5.0) g/dL Intake and Output 09/10/17 09/11/17 09/11/17 22:59 06:59 14:59 Intake Total 640 / 640 Output Total 1200 / 1200 1800 / 1800 Balance -560 / -560 -1800 / -1800 Intake: Oral 640 / 640 Output: Urine 1200 / 1200 1800 / 1800 Other: Urine Appearance Clear Clear Urine Color Yellow Yellow Weight 96 kg Patient Weight 09/12/17 06:59 Weight 96 kg - Imaging and Cardiology EKG results: report reviewed, image reviewed - EKG Interpretation EKG: sinus rhythm, no acute changes Assessment and Plan - Assessment and Plan A Flutter w/ RVR convertd to SR w/ PAC's/PVC's intolerance to 3 BB d/t severe pruritus severe nonischemic DCMP, 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 . Xarelto restarted last wk , for CV. QTc over 513 msec , pt has RBBB however .I elected to lower the dose of Tikosyn to 125 mcg q 12hr at this time . monitor in CCu for risk of proarrhythmia. monitor rhythm , labs (Mg) and QTc. trying to keep Mg mid to upper range , currently at 1.9 , will give IV Mg x1 then schedule MgO2 w/ ongoing PO loop diuretic Rx. see HPI for additional discussion. unfortunately intolerant to carvedilol metoprolol and bisoprolol. pt is doing well. Hospital Course Summary Disclaimer: The visit summary below is not to be considered part of the above Progress Note.
[2017-09-11] MEDS ORDERED: MAGNESIUM SULFATE 1gm PREMIX 1 GM/100 ML BAG IV ONE (10:33)
[2017-09-11] MEDS: ACETAMINOPHEN 325 MG TABLET PO PRN ×2 (11:51→19:44)
[2017-09-11] MEDS: DOFETILIDE 125 MCG CAPSULE PO SCH ×2 (11:51→23:54)
[2017-09-11] MEDS ORDERED: FUROSEMIDE 20 MG TABLET PO SCH (17:00)
[2017-09-11] MEDS: --POM--RIVAROXABAN 20 MG TABLET PO SCH (17:11)
[2017-09-11] MEDS: MAGNESIUM OXIDE 400 MG TABLET PO SCH (21:17)
[2017-09-12] MEDS: ALBUTEROL/IPRATROPIUM 2.5mg-0.5mg/3ml NEB AEROSOL SCH ×2 (07:40→11:30)
[2017-09-12] MEDS: ACETAMINOPHEN 325 MG TABLET PO PRN (08:21)
[2017-09-12] MEDS: MAGNESIUM OXIDE 400 MG TABLET PO SCH (08:22)
[2017-09-12] MEDS: --POM--FUROSEMIDE 40 MG TABLET PO SCH (08:22)
[2017-09-12] MEDS: NICOTINE 7 MG PATCH TD SCH (08:22)
[2017-09-12] MEDS: --POM--LISINOPRIL 2.5 MG TABLET PO SCH (08:22)
[2017-09-12] MEDS: NICOTINE PATCH REMOVAL TD SCH (08:26)
[2017-09-12] MEDS: DOFETILIDE 125 MCG CAPSULE PO SCH (11:50)
--- NOTE | 2017-09-12 12:53 | Discharge Summary ---
Discharge Information Date of admission: 09/10/17 09:45 Attending Physician: Trent Fernandez MD Primary care physician: Hu Ford DO - Laboratory Labs: 09/10/17 10:38 09/12/17 04:10 History of Present Illness HPI: Estela feels well today, she's had an headache yesterday similar to her chronic tension headaches that makes her feel as stiff in her neck and shoulders and she 's had them for at least several months. She says she was feeling tense and worried at time of admission regarding her heart. Tylenol has helped yesterday. Her headache is a very mild this morning. No associated neurological symptoms and she's been up and about to still feeling a lot better since admission. "I' ve been peeing like a race horse " Denies angina dyspnea or palpitations. Good appetite and normal bowel movements and urine. She is quite anxious about going home and quite excited, her son is at the bedside. I&O's and weights reviewed continued to diurese quite well and her BUN is up to 40. Creatinine stable Electrolytes okay. Magnesium 2.3. 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 She had several hospitalization with atrial flutter RVR due to failure to take medications and comply with the office visits the last couple of years. She was taken off anti-tablet one point due to frequent falls and placed on Plavix, however her falls become less frequent she attributed having bad knees are require surgery but she wouldn't have that surgery done. Not even sure Dr. Mayes heart is healthy enough for right knee operation anyway at this time. 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 Villagomez about 3 years ago. Oriented, and at times and showed only mild nonocclusive CAD. She has several hospitalization with atrial flutter RVR and CHF. Seen in the office for 2 to be taken off beta julianna due to intolerance to carvedilol metoprolol and bisoprolol all costs are unbearable even with taken Benadryl around the clock. At that time she was placed on diltiazem admitted on Sunday for to Tikosyn initiation in CCU on monitoring for proarrhythmia. SHARON cardioversion was initially planned for Sunday , after 5 doses of Tikosyn are on board, however patient quickly converted to sinus rhythm after the first dose of the Tikosyn 500 g her QT interval became quite prolonged however we had to lower her dose gradually and eventually down to 125 g every 12 hours interval already looking much better. She's been diuresing a total of -4-5 L just on her usual by mouth Lasix dose and which was subsequently lowered , and eventually at the time of discharge today going to be changed to when necessary. All was to keep her magnesium potassium within mid to upper range and she received IV magnesium sulfate and subsequently by mouth magnesium oxide started but now going to be changed to when necessary and to take with Lasix only at the time of discharge. Patient also advised on the potential role for Life[facility] says she would be interested. She is quite anxious to get out by lunchtime. She is in agreement to return for outpatient EKG and echocardiogram and if her LV EF till under or equal to 35% to put it on, in consultation with the [place], Kya MCKINLEY and contacted For expected outpatient [facility]. Patient and her son it clearly verbalized understanding of her severity of cardiac disease including risk of proarrhythmia with Tikosyn. She is quite happy she is feeling a lot better. She says she doesn't feel too excited about having an ablation procedure of atrial flutter, that may allow sticker of Tikosyn still willing to a visit with Dr. Segovia . Plans for outpatient basic to moderate profile and physical with her PCP in 1 week and again change in her medications include discontinuation of diltiazem, no beta blockers added due to intolerance, Lasix and magnesium oxide changed to when necessary and a lower dose, see med list. Initial discussion regarding better compliance with diet and meds and office visits patient states "I hate seen doctors, but you are different " I congratulated her on a more positive attitude hopefully leading to better compliance. At the time of discharge , patient was laboratory asymptomatic except for a mild residual headache feels as her tension headache, feeling much improved overall. 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 For more details refer to the complete medical record. Hospital course: see history of present illness Time spent with patient: greater than 35 minutes Resuscitation Status: Full Code Exam Vital signs: Temperature 97.4 F 09/12/17 08:00 Pulse Rate 71 09/12/17 10:15 Respiratory Rate 20 09/12/17 11:30 Blood Pressure 132/76 09/12/17 10:01 Pulse Oximetry 97 09/12/17 11:30 - Constitutional no acute distress, other (chronically ill) - Routine HEENT Exam Head: Present: normocephalic, atraumatic Eye: Present: EOMI, PERRL ENT: Present: mucous membranes moist - Routine Neck Exam Present: supple, normal carotid upstroke. Absent: JVD, carotid bruit, lymphadenopathy, thyromegaly - Routine Respiratory Exam Present: CTA bilaterally, distant breath sounds, diminished air movement. Absent: accessory muscle use, respiratory distress - Routine Cardiovascular Exam Present: RRR, no murmur. Absent: bradycardia, tachycardia, JVD - Routine Abdominal Exam Present: soft, normoactive bowel sounds, non distended, non tender. Absent: organomegaly, mass - Routine Extremities Exam Present: no edema, full ROM, pulses intact, normal capillary refill. Absent: cyanosis, clubbing - Routine Skin Exam Present: intact, dry, warm, rash. Absent: cyanosis, erythema - Routine Neurological Exam Present: alert, oriented X3, CN II-XII intact, moving all extremities, vision grossly intact, hearing grossly intact. Absent: motor deficit, altered mental status, hemineglect - Routine Psychiatric Exam Present: normal affect, normal thought process, cooperative, good insight, good judgment Results 09/10/17 10:38 09/12/17 04:10 Comprehensive Metabolic Panel 09/12/17 Range/Units 04:10 Sodium 143 (136-146) MEQ/L Potassium 4.4 (3.6-5) MEQ/L Chloride 108 H (98-107) MEQ/L Carbon Dioxide 27 (22-30) MEQ/L BUN 41.0 H (7-17) MG/DL Creatinine 0.9 (0.7-1.2) mg/dL Glucose 95 (65-110) MG/DL Calcium 9.4 (8.4-10.2) MG/DL Intake and Output 09/11/17 09/12/17 09/12/17 22:59 06:59 14:59 Intake Total 480 / 480 Output Total 1000 / 1000 1600 / 1600 Balance -1000 / -1000 -1600 / -1600 480 / 480 Intake: Oral 480 / 480 Output: Urine 1000 / 1000 1600 / 1600 Other: # Voids 1 Weight 52.4 kg Patient Weight 09/13/17 06:59 Weight 52.4 kg - Imaging and Cardiology Holter: image reviewed EKG results: report reviewed, image reviewed - EKG Interpretation EKG: sinus rhythm, no acute changes Discharge Plan - Med Rec/Dispo Referrals/Follow Up: Trent Fernandez MD [Physician] - 5-6 Weeks (o.v w/ EKG. my office will set up echo and ekg in about 1 wk, call [phone] and ask for Ashley for questions .) Hu Ford DO [Primary Care Provider] - 1 Week (call to set up O.V w/ f/u BMP please) Hanna Doyle MD [Physician] - 1 Month (possible A flutter ablation vs. Medical Rx) [place] Instructions: Dofetilide (By mouth) (Tikosyn), Heart Failure (DC), Low- Sodium Diet (DC), How to Stop Smoking (DC) Prescriptions: New Acetaminophen [Tylenol] 325 - 650 mg PO Q5H PRN tablet PRN Reason: Discomfort Albuterol Neb (0.083%) [Proventil Neb (0.083%)] 2.5 mg AEROSOL Q6H PRN neb PRN Reason: SHORTNESS OF AIR Albuterol/Ipratropium [Duoneb] 3 ml AEROSOL RTQID neb Furosemide [Lasix 40 mg Tab] 20 mg PO DAILY PRN tablet PRN Reason: Edema Magnesium Oxide [Magox] 400 mg PO BID PRN tablet PRN Reason: Edema Nicotine Patch [Nicoderm] 7 mg TD DAILY patch Nicotine Patch Removal 1 removal TD DAILY patch Rivaroxaban [Xarelto] 20 mg PO WS tablet Dofetilide [Tikosyn] 125 mcg PO Q12H #60 cap Continue Acetaminophen [Tylenol] 1,000 mg PO Q6H PRN tab PRN Reason: Pain Hydrocodone/APAP 7.5/325 [[place] 7.5/325] 1 tab PO Q6H PRN #20 tab PRN Reason: Pain Rivaroxaban [Xarelto] 20 mg PO DAILY CALCIUM CARBONATE Chewable [Tums Extra Strength] 750 mg PO PRN PRN tab.chew PRN Reason: Dyspepsia Mag-Al + Sim Oral Liq [Maalox Plus] 30 ml PO Q3H PRN udc PRN Reason: Indigestion Discontinued Albuterol Sulfate 2.5 mg AEROSOL Q4H PRN #30 vial.neb PRN Reason: Shortness Of Air/Wheezing Albuterol/Ipratropium [Duoneb] 3 ml AEROSOL QID #120 each Lisinopril [Prinivil] 2.5 mg PO DAILY #30 tab Nicotine Patch [Nicoderm] 7 mg TD DAILY #28 patch DiltiaZEM CD [Cardizem CD 120 MG] 120 mg PO DAILY Furosemide [Lasix] 20 mg PO PM Furosemide [Lasix 40 mg Tab] 40 mg PO DAILY #30 tab Albuterol HFA Inhaler [Ventolin Hfa 90 mcg/actuation] 1 puff ORAL INH O PRN PRN Reason: Shortness Of Air/Wheezing - Disposition 01 Discharged Home, Self-Care - Dismissal Complete Discharge Instructions are:: Complete
[2017-09-12 13:24] VITALS: BP 137/75; PULSE 75; RESP 31; TEMP 97.8; O2SAT 96
[2017-09-12] MEDS ORDERED: DOFETILIDE 125 MCG CAPSULE PO SCH (21:00)
== END 2017-09-12 14:10 | disposition home or self-care (01) | DRG 309 ==
LOC: CCU 09:45
PROVIDERS: ADMIT Internal Medicine Cardiovascular Disease; ATTEND Internal Medicine Cardiovascular Disease